=== PATIENT | male | born 1930 | race Caucasian/White ===

== ENCOUNTER → 2016-06-20 | Outpatient (REF) | payer MEDICARE, OTHER ==
[~2016-06-20] MED LIST: AMLO10TA PO; ASPI81TA85 PO; CALC1CAP31 PO; CARV3.12 PO; CORE3.12 PO; FAMO1TAB25 PO; FERR325T PO; FURO20TA2 PO; HYDR12.55 PO; HYDR25TAB PO; IMBR1CAP PO; IRON10VL IV; LASI20TA PO; NORCOTAB PO; PROC1INJ2 IV; QUIN40TA5 PO; SENE8.6T PO; SENN1TAB2 PO; TUMS500C PO; TYLE325T5 PO; TYLE650T30 PO; VITA-130 PO; VITA10002 PO
== END ==
LOC: M LAB REF 12:27
PROVIDERS: ATTEND Internal Medicine Medical Oncology
DX: C88.0 Waldenstrom macroglobulinemia (principal); C85.90 Non-Hodgkin lymphoma, unspecified, unspecified site; R16.1 Splenomegaly, not elsewhere classified; Z51.81 Encounter for therapeutic drug level monitoring; Z79.899 Other long term (current) drug therapy

== ENCOUNTER 2016-07-23 10:38 | Inpatient (IN) | payer MEDICARE, OTHER ==
[~2016-07-23] VITALS: Ht 177.8 cm; Wt 81.2 kg
[2016-07-23] MEDS ORDERED: ACETAMINOPHEN TAB 650MG DOSE (2X325MG) PO PRN (11:30)
[2016-07-23 15:47] VITALS: BP 150/75
[2016-07-23] MEDS ORDERED: CEFT1INJ3 IV (16:45)
[2016-07-23] MEDS ORDERED: LEVO1INJ IV (16:45)
[2016-07-23] MEDS ORDERED: ACET-654 PO (16:45)
[2016-07-23] MEDS ORDERED: FERR324T2 PO (16:45)
[2016-07-23] MEDS ORDERED: NEUP480I2 SC (16:45)
[2016-07-23] MEDS ORDERED: METO-346 PO (16:45)
[2016-07-23 16:46] LABS: ALBUMIN 2.9 GM/DL (3.2-5.2); BILIRUBIN,TOTAL 0.5 MG/DL (0.2-1.0); CALCIUM LEVEL 8.1 MG/DL (8.8-10.2); CREATININE FOR GFR 2.38 MG/DL (0.70-1.30); GLOMERULAR FILTRATION RATE 27.9 (>35); POTASSIUM SERUM 4.4 MEQ/L (3.5-5.1); TOTAL PROTEIN 5.8 GM/DL (6.4-8.2)
[2016-07-23] MEDS ORDERED: FAMO40TA3 PO (16:47)
[2016-07-23] MEDS ORDERED: ONDANSETRON 4MG/2ML VIAL (J2405) IV PRN (17:30)
[2016-07-23] MEDS: CEFEPIME HCL 2 GM in D5W MINI-BAG PLUS 50 ML IV SCH (20:34)
[2016-07-23] MEDS: CARVedilol 3.125 MG TAB PO SCH (20:34)
--- NOTE | 2016-07-23 20:37 | HPE ---
DATE OF ADMISSION: 07/23/2016 PRIMARY CARE PROVIDERS: This is a patient of Dr. Schaefer, Dr. Kay Pedersen, Dr. Velasquez, and Dr. Viera. CHIEF COMPLAINT: Neutropenia. SUMMARY OF PRESENTATION: This is an 85-year-old who was admitted to [facility] on 07/16, and transferred to [facility] for oncologic consultation. The patient presented on 07/16 to [facility] with chills and shortness of breath which were sudden in onset. He was found to have bilateral pneumonia, left greater than right, with a lingular focus. He was also noted to be in new-onset atrial fibrillation with slight leukopenia, platelets of 81, temperature of 102.2, and a creatinine above his baseline at 2.6. His white cell count at that time was 3 with neutrophils 74%. There was suspicion of bleeding from a hemorrhoid and anticoagulation was deferred. On 07/17, he had cough with hemoptysis at least once. He had continued dyspnea on exertion. Dyspnea on exertion was severe. He was on supplemental oxygen. Temperature was 100.2 with a white cell count of 3.4 , neutrophils 72%. On 07/18, his atrial fibrillation was rate controlled. Anticoagulation was still deferred secondary to hemoptysis and low platelets. He was afebrile with a white cell count of 1.8, neutrophils 62%. An echocardiogram was completed which showed mod-severe mitral insufficiency and tricuspid insufficiency. CT showed multifocal airspace disease with a focus in the left upper lobe, small bilateral pleural effusions and very small nodules in the right lung. On 07/19, he was seen by cardiology, by Dr. Tre Gonzales, who agreed with not starting anticoagulation, although in the future he would benefit from anticoagulation as he is a high CHADS-VASC score. The patient was on Neupogen. At this point, he was on Rocephin and Levaquin for his pneumonia, and vancomycin was given in one dose. On 07/20, his hemoglobin was 7.7. He received two units of packed red blood cells. His creatinine is 2.4. White cell count 15, with neutrophils 40%, and he was afebrile. On 07/21, he had cough without hemoptysis. White cell count 1.4, neutrophils 45%, and creatinine 2.2. On 07/22, white cell count 1.2, with creatinine of 2.1, and he was afebrile. On 07/23, his temperature is 97.7, pulse 80, respiratory rate 16, blood pressure 152/76, 94% on what appear to be room air. His weight was 176 which was the same as upon arrival. His white cell count was 1 with neutrophils at 14% and creatinine of 2.1. During the course of his stay, the team at [facility] had discussed the possibility of transfer to [facility] and I had been following by phone with the local oncologist. Today, it was elected to transfer the patient to [facility] as we had the bed availability as well as specialist availability necessary to handle his care. Currently he says he is feeling quite well. He is no longer having any significant hemoptysis. He has no pain. He has no further dyspnea on exertion. He was able to walk at [facility] several rooms and back without difficulty. He has no abdominal pain, no rashes. We have discussed the possibility of blood transfusion, and he has given informed consent to give further blood transfusion should that become necessary. His last fever was noted on 07/20 at midnight, 100.8. He has been receiving Neupogen 480 mg daily for four days. Cultures done during the stay including respiratory panel done on 07/16, were negative. PAST MEDICAL HISTORY: 1. Notable for Waldenstrom's. 2. Coronary artery disease status post stents, last in 1986. 3. Gastroesophageal reflux disease (GERD). 4. Hypertension. 5. Chronic kidney disease which would appear to be stage IV with a baseline creatinine probably between 2 and 2.25. 6. Anemia of chronic disease and now pancytopenia likely related to his cancer treatment. 7. History of pleural effusion, status post pleural decortication. 8. Moderate to severe mitral insufficiency. PAST SURGICAL HISTORY: Notable for appendectomy, pleural decortication, and pericardial window. FAMILY HISTORY: Notable for mother who of cancer. Father of unknown causes. ALLERGIES: He has an allergy listed to SYNTHROID which causes rash and itching. MEDICATIONS: During his hospitalization at [facility] include: - Tylenol - ceftriaxone 1 gram intravenous (IV) daily - Neupogen 400 mcg subcutaneous daily - hydrochlorothiazide 12.5 mg daily - Levaquin 250 mg IV daily - amlodipine 10 mg daily - aspirin 81 mg daily - calcitriol 0.25 mcg daily - Coreg 3.125 mg by mouth twice a day - famotidine 40 mg by mouth daily - ferrous sulfate 324 mg by mouth daily SOCIAL HISTORY: He is DO NOT RESUSCITATE/DO NOT INTUBATE (DNR/DNI) and Medical Orders for Life-Sustaining Treatment (MOLST) form is at the bedside, and we reviewed this together. He does not drink alcohol and lives alone. REVIEW OF SYSTEMS: Notable for no headache, no visual changes, no runny nose, no sore throat. No neck pain. Currently not coughing. No chest pain. Not particularly short of breath. No rashes. No abdominal pain. He has been having bowel movements. He has not had any blood that he notices with bowel movements, although he does have a history of hemorrhoids that sometimes bleed. No focal weakness. No history of seizure. He does have lower extremity edema which occurred in both feet during the course of this hospitalization. PHYSICAL EXAMINATION: GENERAL: He is awake, alert, pleasant, easily conversant, in no acute distress. HEENT: Head is normocephalic. Sinus nontender. Pupils equal, round, and reactive. Anicteric. Noninjected. Nasal septum is midline. Mucous membranes moist. There is no thrush. He has his own dentition. NECK: Supple. No cervical or supraclavicular adenopathy. LUNGS: Breathing is symmetrical, distant sounding. I to E ratio is 1:3. No accessory muscle use. Speaking in complete sentences. HEART: Distant sounding, normal S1, S2. I do not appreciate a murmur. Radial pulses are 2+. Capillary refill is less than two seconds. ABDOMEN: Somewhat distended, soft, doughy, nontender. EXTREMITIES: There is no calf edema, but there is bilateral pedal edema, which is pitting and quite noticeable. There is no erythema. Nontender. Sensation appears to be grossly intact. VITAL SIGNS: Are noted to be temperature 96.9, pulse 88, respiratory rate 18, blood pressure 150/75, 97% on room air. NEUROLOGIC: Cranial nerves II through XII are grossly intact. He has normal mood and affect. Strength is symmetrical in the upper and lower extremities. LABORATORY DATA: Reviewed as above. There are no new labs from [facility] as of yet. EKG from previous hospital showed atrial fibrillation with ST-T wave changes. Repeat chest x-ray is pending. 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 PLAN: 1. The patient has neutropenia and has been febrile. Is not currently febrile. Completing a course of therapy for his pneumonia. I have elected to switch his antibiotics from ceftriaxone and Levaquin to cefepime, which will be dose for his renal function. The patient has not been febrile for several days. We will obtain sputum should that become available, and continue to monitor him clinically. 2. The patient is neutropenic which has worsened. Continuing with [facility] and consulting Dr. Boyle for further assistance in his care. 3. The patient also has pancytopenia in the setting of neutropenia, most likely related to his chemotherapy. I sent iron studies. We will also transfuse packed red blood cells as necessary. Have obtained informed consent for that should it become necessary. 4. The patient has chronic kidney disease, stage IV. Appears to be close to his baseline as of this morning. We will continue to follow labs. 5. The patient has new-onset atrial fibrillation. Would benefit from anticoagulation as he improves from his illness. 6. The patient has bilateral lower extremity edema. Would also benefit from lower extremity Dopplers given his increased risk of deep venous thrombosis (DVT). 7. Hemoptysis. Seems to have resolved at this point. Is likely multifactorial. He has not received a CT angiogram of the chest to rule out pulmonary embolism (PE) , and there is none available to him currently. I do not believe that that is the most likely cause of his hemoptysis. 8. DVT prophylaxis will be mechanical. 9. The patient has a history of hypertension. We will continue with antihypertensives as ordered at [facility] with hold parameters. 10. The patient is a DNR/DNI. [facility]
--- NOTE | 2016-07-23 21:42 | ECGEPIP ---
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
[2016-07-23 22:00] VITALS: BP 166/73
[2016-07-24 06:00] VITALS: BP 130/72
[2016-07-24 06:03] LABS: BASO % 1.8 % (0.0-1.0); EOS % 1.8 % (0.0-3.0); LARGE UNSTAINED CELL % 3.7 % (0.0-4.0); LYMPH # 0.4 K/mm3 (1.5-4.5); LYMPH % 55.5 % (24.0-44.0); MEAN CORPUSCULAR HEMOGLOBIN 29.3 pg (27.0-33.0); MEAN CORPUSCULAR HGB CONC 33.1 g/dl (32.0-36.5); MEAN CORPUSCULAR VOLUME 88.3 fl (80.0-96.0); MONO % 2.3 % (0.0-5.0); NEUTROPHILS # 0.3 K/mm3 (1.8-7.7); NEUTROPHILS % 34.9 % (36.0-66.0); PLATELET COUNT, AUTOMATED 120 k/mm3 (150-450); RED CELL DISTRIBUTION WIDTH 13.5 % (11.5-14.5)
[2016-07-24 06:15] LABS: WHITE BLOOD COUNT 0.7 K/mm3 (4.0-10.0)
[2016-07-24 06:34] LABS: CALCIUM LEVEL 7.9 MG/DL (8.8-10.2); CREATININE FOR GFR 2.25 MG/DL (0.70-1.30); GLOMERULAR FILTRATION RATE 29.7 (>35); MAGNESIUM LEVEL 2.2 MG/DL (1.8-2.4); PERCENT SATURATION 10.6 % (19.7-37.4); POTASSIUM SERUM 4.3 MEQ/L (3.5-5.1); THYROXINE (T4) 7.8 UG/DL (4.5-12.0)
--- NOTE | 2016-07-24 08:03 | REP ---
CHEST, TWO VIEWS: Two views of the chest are performed and compared to prior study of 01/15/2016. Left lower hemithorax pleural based opacity appears essentially unchanged. Interstitial fibrotic scarring in the lung bases appears stable as well. No definite acute infiltrate is seen. Heart is slightly enlarged. There is tortuosity of the thoracic aorta. The mediastinal silhouette is unchanged. There are mild degenerative changes of the spine. IMPRESSION: Stable interstitial fibrotic changes without definite superimposed acute infiltrate. Stable pleural based opacity left lower hemithorax laterally. Signed by Sudheer Parkinson MD 07/24/2016 01:55 P
[2016-07-24] MEDS: FERROUS SULFATE 325MG TAB PO SCH (09:08)
[2016-07-24] MEDS: CALCITRIOL 0.25 MCG CAP (S0169) PO SCH (09:08)
[2016-07-24] MEDS: CARVedilol 3.125 MG TAB PO SCH ×2 (09:09→20:03)
[2016-07-24] MEDS: ASPIRIN 81 MG ENTERIC TAB PO SCH (09:09)
[2016-07-24] MEDS: FAMOTIDINE 20 MG TAB PO SCH (09:09)
[2016-07-24] MEDS: amLODIPine 10 MG TAB PO SCH (09:09)
[2016-07-24] MEDS: FILGRASTIM 480 MCG/0.8 ML SYRINGE (J1442) SC SCH (10:36)
--- NOTE | 2016-07-24 13:18 | IPN ---
DATE: 07/24/2016 An 85-year-old gentleman seen at bedside, actually sitting in the chair at bedside, resting comfortably. No complaints. No chest pain, shortness breath, productive sputum, cough, or hemoptysis. No nausea, vomiting, abdominal pain, or diarrhea. OBJECTIVE: VITAL SIGNS: Temperature is 97, pulse 79, respiratory rate 18, blood pressure 130/72, SPO2 is 93% on room air. GENERAL: The patient appears to be in no acute distress. He is alert. HEENT: Unremarkable. LUNGS: Clear. HEART: Regular rate and rhythm. ABDOMEN: Soft. EXTREMITIES: No edema. No calf tenderness. LABORATORY DATA: White count is 0.7, hemoglobin 9.8, platelets are 120,000. Calculated ANC is 244. Sodium 144, potassium 4.3, chloride 114, bicarbonate 19, anion gap 11, BUN is 56, creatinine is 2.25 down from 2.38, glucose is 82, magnesium 2.2, iron 19, TIBC 180, transferrin is 10.6, ferritin is 403 indicating anemia of chronic disease, AST is 13, ALT 21, alkaline phosphatase 74, CRP is 6.18, TSH is 4.180 with free T4 index 2.4, T4 of 7.8. Stool for occult blood is negative. Chest x-ray yesterday on admission shows stable interstitial fibrotic changes without definite superimposed acute infiltrate, stable pleural base opacity, left lower hemathorax. ASSESSMENT AND PLAN: 1. Severe neutropenia with febrile illness. He recently completed a course for pneumonia. On admission yesterday, he was changed to cefepime. Sputum culture is pending. Continue to monitor clinically. 2. Severe neutropenia, as indicated above with little to no response from Neupogen. His calculated absolute neutrophil count (ANC) today is 244. Dr. Boyle has seen the patient this morning and suggested that the patient likely will need a bone marrow biopsy. This likely will be deferred until tomorrow, the beginning of the week when her partner takes over. 3. Pancytopenia, in the setting of neutropenia, likely related to chemotherapy. Iron studies do suggest anemia of chronic disease. He is not symptomatic with his anemia at this point. Therefore, we will hold on any further transfusions. 4. Chronic kidney disease (CKD) stage IV. He appears to be close to his baseline. We will continue to monitor. 5. New-onset atrial fibrillation. He would benefit from anticoagulation therapy after his illnesses improve. For the time being, we will hold on any anticoagulation therapy and further adjust for rate control. 6. Bilateral lower extremity edema. He has underlying Waldenstrom's macroglobulinemia. He likely has increased vascular viscosity which could put him at a higher risk for blood clots. At any rate, we will go ahead and check an ultrasound of the lower extremities to rule out deep vein thrombosis (DVT). However, caution should be made at this point to not anticoagulate him since he is having severe pancytopenia. 7. Hemoptysis, likely multifactorial. He did not receive a CT angiogram of the chest to rule-out pulmonary embolism (PE) likely due to his chronic kidney disease. The hemoptysis has resolved at this point. We will hold off on any further chest workup and check an ultrasound of the lower extremities to see if there is any suggestion of DVT for the time being. 8. Hypertension. Continue antihypertensives with hold parameters. 9. History of coronary artery disease status post stent placement in 1986. No current symptomatology. 10. History of moderate to severe mitral insufficiency. This appears to be stable. 11. History of Waldenstrom's macroglobulinemia, as outlined above, which he follows with hematology/oncology for. 12. DVT prophylaxis with mechanical thromboembolic-deterrent stockings (TEDS) and sequentials and encouraged to ambulate as tolerated. DISPOSITION: The patient does have multiple comorbidities and a complex medical history as outlined above. His prognosis is currently guarded since he does have a severe absolute neutrophil count and appreciate input from hematology/oncology. We will currently continue with broad-spectrum antibiotic coverage as well as his other home medications. Additionally, he continues on Neupogen 480 mcg subcutaneous daily. However, he has been unresponsive at this point and, as recommended by Dr. Boyle, will likely need to have a bone marrow biopsy.
--- NOTE | 2016-07-24 13:56 | REP ---
Bilateral lower extremity Duplex Doppler venous ultrasound: Real time compression and duplex Doppler interrogation of the bilateral lower extremity deep venous system is performed. Bilaterally, the common femoral, superficial femoral and popliteal veins are fully compressible with transducer pressure and demonstrate normal spontaneous and phasic flow, without evidence of deep venous thrombosis. Impression: No evidence of deep venous thrombosis of the bilateral lower extremity femoral popliteal venous system. Note is made of a right popliteal cyst measuring 3.6 x 1.3 x 2.3 cm. Signed by Sudheer Parkinson MD 07/24/2016 01:46 P
[2016-07-24 14:00] VITALS: BP 160/62
[2016-07-24] MEDS: CEFEPIME HCL 2 GM in D5W MINI-BAG PLUS 50 ML IV SCH (20:02)
[2016-07-24 22:00] VITALS: BP 161/75
[2016-07-25] MEDS: guaiFENesin ER 600 MG TAB PO PRN (01:22)
[2016-07-25 06:00] VITALS: BP 147/67
[2016-07-25 06:35] LABS: BASO % 0.6 % (0.0-1.0); EOS % 0.6 % (0.0-3.0); LARGE UNSTAINED CELL % 6.5 % (0.0-4.0); LYMPH # 0.4 K/mm3 (1.5-4.5); LYMPH % 52.3 % (24.0-44.0); MEAN CORPUSCULAR HEMOGLOBIN 29.2 pg (27.0-33.0); MEAN CORPUSCULAR HGB CONC 32.8 g/dl (32.0-36.5); NEUTROPHILS # 0.2 K/mm3 (1.8-7.7); PLATELET COUNT, AUTOMATED 115 k/mm3 (150-450); RED CELL DISTRIBUTION WIDTH 13.6 % (11.5-14.5)
[2016-07-25 06:39] LABS: WHITE BLOOD COUNT 0.7 K/mm3 (4.0-10.0)
[2016-07-25 06:46] LABS: CALCIUM LEVEL 8.5 MG/DL (8.8-10.2); CREATININE FOR GFR 2.38 MG/DL (0.70-1.30); GLOMERULAR FILTRATION RATE 27.9 (>35); POTASSIUM SERUM 4.3 MEQ/L (3.5-5.1)
[2016-07-25] MEDS: CALCITRIOL 0.25 MCG CAP (S0169) PO SCH (09:55)
[2016-07-25] MEDS: ASPIRIN 81 MG ENTERIC TAB PO SCH (09:55)
[2016-07-25] MEDS: FERROUS SULFATE 325MG TAB PO SCH (09:55)
[2016-07-25] MEDS: FAMOTIDINE 20 MG TAB PO SCH (09:56)
[2016-07-25] MEDS: CARVedilol 3.125 MG TAB PO SCH ×2 (09:56→20:25)
[2016-07-25] MEDS: amLODIPine 10 MG TAB PO SCH (09:56)
[2016-07-25] MEDS: FILGRASTIM 480 MCG/0.8 ML SYRINGE (J1442) SC SCH (12:10)
--- NOTE | 2016-07-25 13:19 | CR ---
DATE OF CONSULTATION: 07/24/2016 REASON FOR REFERRAL: Neutropenia. HISTORY OF PRESENT ILLNESS: Mr. 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 He received one dose of rituximab, but he reacted to this. He was started on ibrutinib in November 2015. He is currently admitted for neutropenia. He was transferred from [facility] where he was admitted on 07/16/2016 for chills, shortness of breath, hemoptysis. His respiratory symptoms have since improved, but his cytopenia has continued and he was therefore transferred for further management. At present, Mr. Zabala has had no fevers since he was transferred here. He is doing reasonably well. There is no shortness of breath. He has had no fevers. He has had no hemoptysis. He is ambulatory and not in distress. He has been off ibrutinib since last week. His blood counts were improving at that time, but have subsequently decreased with a decrease in the WBC count. Platelet count has improved; however, the hemoglobin had decreased and he received 2 units of packed cells before being transferred here from [facility]. MEDICATIONS: - Filgrastim - amlodipine - calcitriol - famotidine - ferrous sulfate - carvedilol - cefepime - ondansetron ALLERGIES: LEVOTHYROXINE and RITUXIMAB. PHYSICAL EXAMINATION: He was afebrile. He was comfortable at rest and on speaking. LUNGS: Fair air entry. Oxygen saturation 93% on room air. CARDIOVASCULAR: Regular. ABDOMEN: Soft, nontender. No guarding. Positive bowel sounds. EXTREMITIES: Trace bipedal edema. No calf tenderness. IMPRESSION/PLAN: Mr. Zabala's blood tests today came back showing continued neutropenia with WBC count 0.7 and absolute neutrophil count of 0.3. The absolute neutrophil count shows an improvement from yesterday. I suggest continued monitoring of his complete blood counts with blood transfusions of packed cells and platelets as needed. Continue Neupogen. If his WBC count continues to go down or stays down for a prolonged period, a bone marrow aspiration or biopsy may be considered. I am leaving this for Dr. Pedersen to address tomorrow and/or next week. Thank you for this referral. [facility]
[2016-07-25 14:00] VITALS: BP 154/70
--- NOTE | 2016-07-25 17:22 | IPNPDOC ---
Date Seen The patient was seen on 07/25/16. Progress Note Hospitalist Progress Note Subjective: Patient states that he feels very well and would like to go home Objective: Physical Exam: Vitals: Vital Sign - Last 24 Hours 07/24/16 07/24/16 07/24/16 07/25/16 20:02 20:03 22:00 06:00 Temp 98.5 97.5 Pulse 87 87 81 Resp 18 18 B/P 161/75 161/75 147/67 Pulse Ox 96 95 O2 Delivery Room Air Room Air Room Air 07/25/16 07/25/16 07/25/16 08:15 09:56 14:00 Temp 97.1 Pulse 86 78 Resp 18 B/P 161/75 154/70 Pulse Ox 96 O2 Delivery Room Air Room Air General: Alert, awake, no acute distress HEENT: Normocephalic, atraumatic, extraocular movements intact CV: Regular rate and rhythm Lungs: Clear to auscultation bilaterally Abd: Soft, nontender, nondistended Extremities: 2+ bilateral lower extremity edema Neuro: Alert and oriented 3 Psych: Normal mood and affect Labs and Imaging: Laboratory Tests 07/25/16 05:54 Calcium Level 8.5 L, Red Blood Count 3.27 L, Mean Corpuscular Volume 89.0, Mean Corpuscular Hemoglobin 29.2, Mean Corpuscular Hemoglobin Concent 32.8, Red Cell Distribution Width 13.6, Neutrophils (%) (Auto) 35.0 L, Lymphocytes (%) (Auto) 52.3 H, Monocytes (%) (Auto) 5.0, Eosinophils (%) (Auto) 0.6, Basophils (%) ( Auto) 0.6, Neutrophils # (Auto) 0.2 L, Lymphocytes # (Auto) 0.4 L, Monocytes # ( Auto) 0.0, Eosinophils # (Auto) 0.0, Basophils # (Auto) 0.0 Assessment and Plan: 85-year-old male with Waldenstrm's gammaglobulinemia, coronary artery disease status post stenting, GERD, hypertension, CK D stage IV, pancytopenia, moderate to severe mitral insufficiency who was transferred from [facility] for an oncology consultation. At [facility], he had been being treated for a neutropenic fever with presumed pneumonia. 1. Neutropenic fever from presumed pneumonia: The patient is currently afebrile. His WBC remains at 0.7. Greatly appreciate oncology's recommendations. At this time, they're recommending continued Neupogen. We also will continue the patient on cefepime. We will transfuse platelets and PRBCs as needed. 2. Chronic kidney disease stage IV: Baseline creatinine appears to be in the mid twos, and he is currently at baseline. Continue home Rocaltrol 3. CAD status post stenting: No current chest pain. Continue home aspirin and Coreg. 4. GERD: Continue home H2 kyra. 5. Hypertension: Continue home Norvasc and beta kyra. DVT prophylaxis: SCDs Dispo: pending oncology recommendations VS, I&O, 24H, Fishbone Vital Signs/I&O Vital Signs Date Time Temp Pulse Resp B/P Pulse Ox O2 Delivery O2 Flow Rate FiO2 07/25/16 14:00 97.1 78 18 154/70 96 Room Air I&O- Last 24 Hours up to 6 AM 07/25/16 06:00 Intake Total 1320 ml Output Total 1175 ml Balance 145 ml Laboratory Data 24H LABS Laboratory Tests 2 07/25/16 05:54: Anion Gap 11, White Blood Count 0.7*L, Red Blood Count 3.27L, Hemoglobin 9.6L, Hematocrit 29.1L, Mean Corpuscular Volume 89.0, Mean Corpuscular Hemoglobin 29.2 , Mean Corpuscular Hemoglobin Concent 32.8, Red Cell Distribution Width 13.6, Platelet Count 115L, Neutrophils (%) (Auto) 35.0L, Lymphocytes (%) (Auto) 52.3H , Monocytes (%) (Auto) 5.0, Eosinophils (%) (Auto) 0.6, Basophils (%) (Auto) 0.6 , Neutrophils # (Auto) 0.2L, Lymphocytes # (Auto) 0.4L, Monocytes # (Auto) 0.0, Eosinophils # (Auto) 0.0, Basophils # (Auto) 0.0, Blood Urea Nitrogen 55H, Creatinine 2.38H, Sodium Level 144, Potassium Level 4.3, Chloride Level 114H, Carbon Dioxide Level 19L, Calcium Level 8.5L, Glomerular Filtration Rate 27.9L, Large Unclassified Cells # 0.0, Large Unclassified Cells % 6.5H CBC/BMP Laboratory Tests 07/25/16 05:54 Calcium Level 8.5 L, Red Blood Count 3.27 L, Mean Corpuscular Volume 89.0, Mean Corpuscular Hemoglobin 29.2, Mean Corpuscular Hemoglobin Concent 32.8, Red Cell Distribution Width 13.6, Neutrophils (%) (Auto) 35.0 L, Lymphocytes (%) (Auto) 52.3 H, Monocytes (%) (Auto) 5.0, Eosinophils (%) (Auto) 0.6, Basophils (%) ( Auto) 0.6, Neutrophils # (Auto) 0.2 L, Lymphocytes # (Auto) 0.4 L, Monocytes # ( Auto) 0.0, Eosinophils # (Auto) 0.0, Basophils # (Auto) 0.0 Microbiology Microbiology 07/24/16 Stool Occult Blood (MARY) - Final, Complete SANDRA LEYVA Jul 25, 2016 17:22
[2016-07-25] MEDS: CEFEPIME HCL 2 GM in D5W MINI-BAG PLUS 50 ML IV SCH (20:25)
[2016-07-25 22:00] VITALS: BP 150/62
[2016-07-26] MEDS: guaiFENesin ER 600 MG TAB PO PRN (03:49)
[2016-07-26 06:00] VITALS: BP 128/60
[2016-07-26 06:55] LABS: CALCIUM LEVEL 8.6 MG/DL (8.8-10.2); CREATININE FOR GFR 2.21 MG/DL (0.70-1.30); DIFF SLIDE NUMBER 42; GLOMERULAR FILTRATION RATE 30.3 (>35); MEAN CORPUSCULAR HEMOGLOBIN 29.2 pg (27.0-33.0); MEAN CORPUSCULAR HGB CONC 32.4 g/dl (32.0-36.5); MEAN CORPUSCULAR VOLUME 90.2 fl (80.0-96.0); PLATELET COUNT, AUTOMATED 124 k/mm3 (150-450); POTASSIUM SERUM 4.4 MEQ/L (3.5-5.1); RED CELL DISTRIBUTION WIDTH 13.7 % (11.5-14.5)
[2016-07-26 07:05] LABS: WHITE BLOOD COUNT 0.6 K/mm3 (4.0-10.0)
[2016-07-26 07:26] LABS: BASOPHILS 1 % (0-4)
[2016-07-26] MEDS: CALCITRIOL 0.25 MCG CAP (S0169) PO SCH (09:13)
[2016-07-26] MEDS: ASPIRIN 81 MG ENTERIC TAB PO SCH (09:13)
[2016-07-26] MEDS: FAMOTIDINE 20 MG TAB PO SCH (09:13)
[2016-07-26] MEDS: FERROUS SULFATE 325MG TAB PO SCH (09:13)
[2016-07-26] MEDS: amLODIPine 10 MG TAB PO SCH (09:14)
[2016-07-26] MEDS: CARVedilol 3.125 MG TAB PO SCH ×2 (09:14→20:14)
--- NOTE | 2016-07-26 10:21 | CR ---
DATE OF CONSULTATION: 07/25/2016 Dr. Flower asked me to see Mr. Zabala and provide medical oncology recommendations. The patient is an 85-year-old man well-known to me with a diagnosis of Waldenstrom's macroglobulinemia made approximately 1 year ago. He has been on ibrutinib for over 6 months with excellent response. He initially presented last year with left malignant pleural effusion and underwent thoracentesis, ultimately had a recurrence on the right, underwent right thoracentesis with pleurodesis. He also had massive splenomegaly on initial presentation. He has responded very well to ibrutinib but last week was admitted to [facility] with neutropenic fever, found to have bilateral pneumonia, started on antibiotics. He was started on filgrastim 480 mcg subcutaneous daily with a plan to continue it until his ANC marine to 1500. The WBC continues to decline and he has developed grade 3 febrile neutropenia and was transferred to [facility]. Here, absolute leukocyte count is 700, absolute neutrophil count 300 on 07/24/2016, 200 on 07/25/2016. Hemoglobin and hematocrit remain at the patient's approximate baseline of 9 and 29, respectively. He has chronic renal insufficiency. Did require blood transfusion for hemoglobin of 7 at [facility]. He has mild thrombocytopenia now, platelet count between 115 and 120. Of note, he also has had some issues of atrial fibrillation and tachycardia requiring rate control. On echocardiogram he has moderate to severe mitral insufficiency and tricuspid insufficiency, and CT at [facility] showed multifocal air space disease in the left upper lobe, bilateral small effusions and small right lung nodules (this is consistent with prior film). Anticoagulation was held due to some hemoptysis. The patient describes this as "just a little." To date blood cultures have been negative. I found Mr. Zabala seated in the chair beside the bed. He reports feeling generally kind of tired but denies any localizing pain. He would like to get out of the hospital. Ibrutinib has been held since his admission last week at [facility]. I reinforced with him the need to continue Neupogen awaiting rise in the WBC count / neutrophil count. Overall my strong impression is he has ibrutinib toxicity which can span pancytopenia, atrial fibrillation, and even pneumonia. I do not think a bone marrow biopsy is appropriate at this point but rather a watch and wait approach. Should his counts continue to lower, particularly if the platelets and red blood cell count continued to drop precipitously, possibly a diagnostic bone marrow biopsy should be performed. However, all of the current findings are consistent with ibrutinib toxicity. IMPRESSION: Ibrutinib toxicity in an 85-year-old man with Waldenstrom's macroglobulinemia generally responding to therapy but now with pancytopenia and grade 3 febrile neutropenia requiring G-CSF support. He has not yet reached a jeremie of his ANC, currently at 300. Unclear if he has reached a jeremie for hemoglobin or platelet count. No active bleeding currently. I agree with current antibiotic regimen of cefepime. I agree with current holding of anticoagulation, however if platelets normalize this might be reconsidered. RECOMMENDATIONS: 1. Continue filgrastim 480 mcg subcutaneous daily until absolute neutrophil count 1500. 2. Neutropenic contact and respiratory precautions are not essential in a patient without a longstanding history of chronic immunosuppression. 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 3. Should platelet count drop precipitously and signs of bleeding emerge, transfuse for platelet count below 20; transfuse for platelet count below 10 with or without evidence of bleeding. 4. At this point I am not recommending diagnostic bone marrow biopsy. I believe the constellation of signs and symptoms that brought the patient to the hospital are consistent with ibrutinib toxicity including his pneumonia and his atrial fibrillation, these are recognized complications in addition to the thrombocytopenia, anemia and leukopenia. Continue to hold ibrutinib for the time being. Should he develop profound progressive pancytopenia despite supportive efforts, diagnostic bone marrow biopsy may be of assistance. 5. Please send peripheral blood flow cytometry to rule out an acute leukemic process. 6. I will see the patient tomorrow 07/26/2016. I am scheduled to be out of town 07/27/2016 through 07/31/2016. My colleagues, Drs. Castillo and Montana , will be covering on an as-needed basis in my stead. MTDD
[2016-07-26] MEDS: FILGRASTIM 480 MCG/0.8 ML SYRINGE (J1442) SC SCH (10:55)
--- NOTE | 2016-07-26 11:13 | IPNPDOC ---
Date Seen The patient was seen on 07/26/16. Progress Note Subjective: Patient did not offer any complaint this morning. No fever or chills , no cough or phlegm , no nausea or vomiting or diarrhea. Vital signs: Vital Signs Label Value Date Time Patient Temperature 97.8 degrees F 07/26/16 0600 Pulse 84 07/26/16599 Respiratory Rate 20 bpm 07/26/16 06 Blood Pressure Assessment 128/60 (82) 07/26/16 06 Bedside Pulse Oximetry 95 % 07/26/16599 Blood Pressure Assessment 157/70 07/26/16 0914 Pulse 86 07/26/1614 Item Value Date Time Oxygen Delivery Method Room Air 07/26/1615 General: Alert, awake, no acute distress HEENT: Normocephalic, atraumatic, extraocular movements intact CV: Regular rate and rhythm Lungs: Clear to auscultation bilaterally Abd: Soft, nontender, nondistended Extremities: 2+ bilateral lower extremity edema Neuro: Alert and oriented 3 Psych: Normal mood and affect Assessment and Plan: 85-year-old male with Waldenstrm's gammaglobulinemia, coronary artery disease status post stenting, GERD, hypertension, CK D stage IV, pancytopenia, moderate to severe mitral insufficiency who was transferred from [facility] for an oncology consultation. At [facility], he had been being treated for a neutropenic fever with presumed pneumonia. 1. Neutropenic fever from presumed pneumonia: The patient is currently afebrile. His WBC remains at 0.6. Greatly appreciate oncology's recommendations. At this time, they're recommending continued Neupogen. We also will continue the patient on cefepime. We will transfuse platelets and PRBCs as needed. 2. Chronic kidney disease stage IV: Baseline creatinine appears to be in the mid twos, and he is currently at baseline. Continue home Rocaltrol 3. CAD status post stenting: No current chest pain. Continue home aspirin and Coreg. 4. GERD: Continue home H2 kyra. 5. Hypertension: Continue home Norvasc and beta kyra. DVT prophylaxis: SCDs Dispo: pending oncology recommendations VS, I&O, 24H, Fishbone Vital Signs/I&O Vital Signs Date Time Temp Pulse Resp B/P Pulse Ox O2 Delivery O2 Flow Rate FiO2 07/26/16 09:15 Room Air 07/26/16 09:14 86 157/70 07/26/16 06:00 97.8 20 95 I&O- Last 24 Hours up to 6 AM 07/26/16 06:00 Intake Total 1860 ml Output Total 450 ml Balance 1410 ml Laboratory Data 24H LABS Laboratory Tests 2 07/26/16 05:56: Anion Gap 12, Atypical Lymphocytes 2, Basophils (Manual) 1, Blood Urea Nitrogen 58H, Creatinine 2.21H, Sodium Level 145, Potassium Level 4.4, Chloride Level 115H, Carbon Dioxide Level 18L, Calcium Level 8.6L, Glomerular Filtration Rate 30.3L, Lymphocytes (Manual) 74H, Monocytes (Manual) 3, Neutrophils 20L, Platelet Estimate DECREASED, Red Blood Cell Morphology NORMAL CBC/BMP Laboratory Tests 07/26/16 05:56 Calcium Level 8.6 L, Red Blood Count 3.22 L, Mean Corpuscular Volume 90.2, Mean Corpuscular Hemoglobin 29.2, Mean Corpuscular Hemoglobin Concent 32.4, Red Cell Distribution Width 13.7 Microbiology Microbiology 07/24/16 Stool Occult Blood (MARY) - Final, Complete JESSIE SERRA MD Jul 26, 2016 11:13
[2016-07-26 14:00] VITALS: BP 129/60
[2016-07-26] MEDS: CEFEPIME HCL 2 GM in D5W MINI-BAG PLUS 50 ML IV SCH (20:15)
[2016-07-26 22:00] VITALS: BP 130/68
[2016-07-27 06:00] VITALS: BP 146/70
[2016-07-27 07:11] LABS: MEAN CORPUSCULAR HEMOGLOBIN 29.3 pg (27.0-33.0); MEAN CORPUSCULAR VOLUME 88.6 fl (80.0-96.0); PLATELET COUNT, AUTOMATED 116 k/mm3 (150-450); RED CELL DISTRIBUTION WIDTH 13.6 % (11.5-14.5); WHITE BLOOD COUNT 1.1 K/mm3 (4.0-10.0)
[2016-07-27 07:26] LABS: CALCIUM LEVEL 8.7 MG/DL (8.8-10.2); CREATININE FOR GFR 2.27 MG/DL (0.70-1.30); GLOMERULAR FILTRATION RATE 29.4 (>35); POTASSIUM SERUM 4.4 MEQ/L (3.5-5.1)
[2016-07-27 07:59] LABS: DOHLE BODIES 1+
[2016-07-27] MEDS: CALCITRIOL 0.25 MCG CAP (S0169) PO SCH (09:00)
[2016-07-27] MEDS: FERROUS SULFATE 325MG TAB PO SCH (09:00)
[2016-07-27] MEDS: ASPIRIN 81 MG ENTERIC TAB PO SCH (09:00)
[2016-07-27] MEDS: FAMOTIDINE 20 MG TAB PO SCH (09:00)
[2016-07-27] MEDS: amLODIPine 10 MG TAB PO SCH (09:01)
[2016-07-27] MEDS: CARVedilol 3.125 MG TAB PO SCH ×2 (09:01→20:30)
[2016-07-27] MEDS ORDERED: FUROSEMIDE 100 MG/10 ML VIAL (J1940) IV ONE (10:45)
[2016-07-27] MEDS: FILGRASTIM 480 MCG/0.8 ML SYRINGE (J1442) SC SCH (11:52)
--- NOTE | 2016-07-27 13:45 | IPNPDOC ---
Date Seen The patient was seen on 07/27/16. Progress Note Subjective: The patient did not offer any complaints today , feeling better breathing better, no fever or chills, no chest pain or cough , no abdominal pain nausea or vomiting or diarrhea. Vital signs: Vital Signs Label Value Date Time Patient Temperature 96.8 degrees F 07/27/16 0600 Pulse 69 07/27/1600 Respiratory Rate 20 bpm 07/27/16599 Blood Pressure Assessment 146/70 (95) 07/27/16599 Bedside Pulse Oximetry 95 % 07/27/16599 Physical exam: General: Alert, awake, no acute distress HEENT: Normocephalic, atraumatic, extraocular movements intact CV: Regular rate and rhythm Lungs: Clear to auscultation bilaterally Abd: Soft, nontender, nondistended Extremities: 2+ bilateral lower extremity edema Neuro: Alert and oriented 3 Psych: Normal mood and affect Assessment and Plan: 85-year-old male with Waldenstrm's gammaglobulinemia, coronary artery disease status post stenting, GERD, hypertension, CK D stage IV, pancytopenia, moderate to severe mitral insufficiency who was transferred from [facility] for an oncology consultation. At [facility], he had been being treated for a neutropenic fever with presumed pneumonia. Neutropenic fever from presumed pneumonia: The patient is currently afebrile. His WBC remains at 0.6. Greatly appreciate oncology's recommendations. At this time, they're recommending continued Neupogen. We also will continue the patient on cefepime. will need 8 days of cefepime therapy. We will transfuse platelets and PRBCs as needed. Ibrutinib toxicity : Severe pancytopenia , atrial fibrillation and even pneumonia are all seen with Ibrutinib toxicity. It has been on hold from [facility]. Chronic kidney disease stage IV: Baseline creatinine appears to be in the mid twos, and he is currently at baseline. Continue home Rocaltrol. However seems to have mild fluid overload so will give one dose of lasix today. CAD status post stenting: No current chest pain. Continue home aspirin and Coreg. GERD: Continue home H2 kyra. Hypertension: Continue home Norvasc and beta kyra. DVT prophylaxis: SCDs Dispo: pending oncology recommendations VS, I&O, 24H, Fishbone Vital Signs/I&O Vital Signs Date Time Temp Pulse Resp B/P Pulse Ox O2 Delivery O2 Flow Rate FiO2 07/27/16 09:01 80 143/63 07/27/16 09:00 Room Air 07/27/16 06:00 96.8 20 95 I&O- Last 24 Hours up to 6 AM 07/27/16 06:00 Intake Total 2750 ml Output Total 950 ml Balance 1800 ml Laboratory Data 24H LABS Laboratory Tests 2 07/27/16 06:11: Anion Gap 12, Atypical Lymphocytes 1, White Blood Count 1.1L, Red Blood Count 3.08L, Hemoglobin 9.0L, Hematocrit 27.3L, Mean Corpuscular Volume 88.6, Mean Corpuscular Hemoglobin 29.3, Mean Corpuscular Hemoglobin Concent 33.0, Red Cell Distribution Width 13.6, Platelet Count 116L, Neutrophils (%) (Auto) , Lymphocytes (%) (Auto) , Monocytes (%) (Auto) , Eosinophils (%) (Auto) , Basophils (%) (Auto) , Neutrophils # (Auto) , Lymphocytes # (Auto) , Monocytes # (Auto) , Eosinophils # (Auto) , Basophils # (Auto) , Blood Urea Nitrogen 58H, Creatinine 2.27H, Sodium Level 143, Potassium Level 4.4, Chloride Level 113H, Carbon Dioxide Level 18L, Calcium Level 8.7L, Dohle Bodies 1+, Glomerular Filtration Rate 29.4L, Large Unclassified Cells # , Large Unclassified Cells % , Lymphocytes (Manual) 81H, Monocytes (Manual) 1, Neutrophils 17L, Platelet Estimate DECREASED, Red Blood Cell Morphology NORMAL CBC/BMP Laboratory Tests 07/27/16 06:11 Calcium Level 8.7 L, Red Blood Count 3.08 L, Mean Corpuscular Volume 88.6, Mean Corpuscular Hemoglobin 29.3, Mean Corpuscular Hemoglobin Concent 33.0, Red Cell Distribution Width 13.6, Neutrophils (%) (Auto) , Lymphocytes (%) (Auto) , Monocytes (%) (Auto) , Eosinophils (%) (Auto) , Basophils (%) (Auto) , Neutrophils # (Auto) , Lymphocytes # (Auto) , Monocytes # (Auto) , Eosinophils # (Auto) , Basophils # (Auto) Microbiology Microbiology 07/24/16 Stool Occult Blood (MARY) - Final, Complete JESSIE SERRA MD Jul 27, 2016 13:45
[2016-07-27 14:00] VITALS: BP 148/64
--- NOTE | 2016-07-27 16:42 | IPN ---
DATE OF VISIT: 07/26/2016 MEDICAL ONCOLOGY INPATIENT FOLLOWUP. Mr. Zabala is an 85-year-old man with Waldenstrom's macroglobulinemia diagnosed in spring 2015 on first line treatment with ibrutinib. He is now admitted grade 3 neutropenic fever, pneumonia, pancytopenia which has progressed despite granulocyte-colony stimulating factor (G-CSF) support. He was treated at [facility] prior to his admission at [facility] for atrial fibrillation requiring rate control and started on antibiotics for bilateral pneumonia. He has developed significant, grade 3 neutropenia while inpatient. His leukopenia is grade 3 as well. Absolute white blood cell count 600, ANC 20, now grade 4. Clinically he is stable. Vital signs are normal. He is afebrile. Blood pressure 129/60 at last check. He is seated next of the bed wearing a bathrobe a little more energetic today versus yesterday, though he says he still has a little shortness of breath when he walks. He would like to go for walk down the [place] tomorrow. Overall CBC with stable normocytic anemia, hemoglobin 9, hematocrit 29, platelets stable at 124. IMPRESSION: 1. Grade 3 neutropenic fever. 2. Grade 4 neutropenia pneumonia and atrial fibrillation complicating otherwise stable long-term treatment. 3. On ibrutinib or Waldenstrom's macroglobulinemia. I recommend continuing filgrastim (Neupogen) 480 mcg subcutaneously daily until absolute neutrophil count begins to trend up and toward 1500. The leucopenia may have jeremie, it is a little unclear. The thrombocytopenia appears to have jeremie and the anemia is stable. Yesterday I recommended peripheral blood flow cytometry. If this has not been sent it should be. It may contain blasts secondary to filgrastim but an obvious leukemic clone would be pretty quickly picked up on a peripheral blood flow cytometry. I discussed with Mr. Zabala my suspicion that this is all ibrutinib related. He should stay off the drug for the time being. We will follow him carefully supporting with G-CSF until he has recovered his counts. I agree with continuing antibiotics to treat his pneumonia. If however his respiratory symptoms progress, a chest x-ray or chest CT should be done. He originally presented with a left malignant pleural effusion which was drained. He subsequently developed a right pleural effusion which was drained and then pleurodesed but he remains unpleurodesed on the left side and a recurrent left effusion there is a possibility. In the past he has declined a PleurX catheter but a recurrent pleural effusion should prompt placement of a PleurX at this point. Otherwise his lymphoma has been in very good control on ibrutinib. IMPRESSION: Waldenstrom's macroglobulinemia with ibrutinib toxicity of pancytopenia, grade 3 febrile neutropenia and pneumonia and atrial fibrillation now under good control. RECOMMENDATIONS: 1. Continue to hold ibrutinib. 2. Continue filgrastim 480 mg subcutaneously daily. 3. Discontinue filgrastim once ANC begins to begins to trend up toward or above 1000. 4. I will be out of town July 27-. Drs. Boyle and Jonathan would be available on an as-needed basis for oncology / hematology consult.
[2016-07-27] MEDS: CEFEPIME HCL 2 GM in D5W MINI-BAG PLUS 50 ML IV SCH (20:30)
[2016-07-28 06:00] VITALS: BP 158/74
[2016-07-28 07:12] LABS: MEAN CORPUSCULAR HEMOGLOBIN 29.5 pg (27.0-33.0); MEAN CORPUSCULAR HGB CONC 32.7 g/dl (32.0-36.5); MEAN CORPUSCULAR VOLUME 90.4 fl (80.0-96.0); PLATELET COUNT, AUTOMATED 142 k/mm3 (150-450); RED CELL DISTRIBUTION WIDTH 13.8 % (11.5-14.5); WHITE BLOOD COUNT 2.2 K/mm3 (4.0-10.0)
[2016-07-28 07:24] LABS: CALCIUM LEVEL 8.5 MG/DL (8.8-10.2); CREATININE FOR GFR 2.52 MG/DL (0.70-1.30); GLOMERULAR FILTRATION RATE 26.1 (>35); POTASSIUM SERUM 4.2 MEQ/L (3.5-5.1)
--- NOTE | 2016-07-28 09:21 | IPNPDOC ---
Date Seen The patient was seen on 07/28/16. Progress Note Subjective: No complaints, no fever or chills, Vitals: Vital Signs Label Value Date Time Patient Temperature 98.1 degrees F 07/28/16599 Temperature Source Tympanic 07/28/16599 Pulse 71 07/28/16599 Respiratory Rate 18 bpm 07/28/16599 Blood Pressure Assessment 158/74 (102) 07/28/16599 Bedside Pulse Oximetry 95 % 07/28/16599 Item Value Date Time Oxygen Delivery Method Room Air 07/28/16599 Physical exam: General: Alert, awake, no acute distress HEENT: Normocephalic, atraumatic, extraocular movements intact CV: Regular rate and rhythm Lungs: Clear to auscultation bilaterally Abd: Soft, nontender, nondistended Extremities: 2+ bilateral lower extremity edema Neuro: Alert and oriented 3 Psych: Normal mood and affect Assessment and Plan: 85-year-old male with Waldenstrm's gammaglobulinemia, coronary artery disease status post stenting, GERD, hypertension, CK D stage IV, pancytopenia, moderate to severe mitral insufficiency who was transferred from [facility] for an oncology consultation. At [facility], he had been being treated for a neutropenic fever with presumed pneumonia. Neutropenic fever from presumed pneumonia: The patient is currently afebrile. His WBC improving. ANC 858. Greatly appreciate oncology's recommendations. At this time, they're recommending continued Neupogen. We also will continue the patient on cefepime. will need 8 days of cefepime therapy. We will transfuse platelets and PRBCs as needed. Ibrutinib toxicity : Severe pancytopenia , atrial fibrillation and even pneumonia are all seen with Ibrutinib toxicity. It has been on hold from [facility]. Chronic kidney disease stage IV: Baseline creatinine appears to be in the mid twos, and he is currently at baseline. Continue home Rocaltrol. However seems to have mild fluid overload so will give one dose of lasix today. CAD status post stenting: No current chest pain. Continue home aspirin and Coreg. GERD: Continue home H2 kyra. Hypertension: Continue home Norvasc and beta kyra. DVT prophylaxis: SCDs VS, I&O, 24H, Fishbone Vital Signs/I&O Vital Signs Date Time Temp Pulse Resp B/P Pulse Ox O2 Delivery O2 Flow Rate FiO2 07/28/16 06:00 98.1 71 18 158/74 95 Room Air I&O- Last 24 Hours up to 6 AM 07/28/16 06:00 Intake Total 1370 ml Output Total 1075 ml Balance 295 ml Laboratory Data 24H LABS Laboratory Tests 2 07/28/16 06:24: White Blood Count 2.2L, Red Blood Count 3.15L, Hemoglobin 9.3L, Hematocrit 28.4L , Mean Corpuscular Volume 90.4, Mean Corpuscular Hemoglobin 29.5, Mean Corpuscular Hemoglobin Concent 32.7, Red Cell Distribution Width 13.8, Platelet Count 142L, Neutrophils (%) (Auto) , Lymphocytes (%) (Auto) , Monocytes (%) ( Auto) , Eosinophils (%) (Auto) , Basophils (%) (Auto) , Neutrophils # (Auto) , Lymphocytes # (Auto) , Monocytes # (Auto) , Eosinophils # (Auto) , Basophils # ( Auto) , Large Unclassified Cells # , Large Unclassified Cells % , Lymphocytes ( Manual) 58H, Monocytes (Manual) 3, Neutrophils 39, Platelet Estimate NORMAL, Red Blood Cell Morphology NORMAL 07/28/16 06:25: Anion Gap 11, Blood Urea Nitrogen 60H, Creatinine 2.52H, Sodium Level 142, Potassium Level 4.2, Chloride Level 112H, Carbon Dioxide Level 19L, Calcium Level 8.5L, Glomerular Filtration Rate 26.1L CBC/BMP Laboratory Tests 07/28/16 06:24 Red Blood Count 3.15 L, Mean Corpuscular Volume 90.4, Mean Corpuscular Hemoglobin 29.5, Mean Corpuscular Hemoglobin Concent 32.7, Red Cell Distribution Width 13.8, Neutrophils (%) (Auto) , Lymphocytes (%) (Auto) , Monocytes (%) (Auto) , Eosinophils (%) (Auto) , Basophils (%) (Auto) , Neutrophils # (Auto) , Lymphocytes # (Auto) , Monocytes # (Auto) , Eosinophils # (Auto) , Basophils # (Auto) 07/28/16 06:25 Calcium Level 8.5 L Microbiology Microbiology 07/24/16 Stool Occult Blood (MARY) - Final, Complete JESSIE SERRA MD Jul 28, 2016 09:21
[2016-07-28] MEDS: FERROUS SULFATE 325MG TAB PO SCH (10:28)
[2016-07-28] MEDS: FAMOTIDINE 20 MG TAB PO SCH (10:28)
[2016-07-28] MEDS: amLODIPine 10 MG TAB PO SCH (10:29)
[2016-07-28] MEDS: CALCITRIOL 0.25 MCG CAP (S0169) PO SCH (10:29)
[2016-07-28] MEDS: ASPIRIN 81 MG ENTERIC TAB PO SCH (10:29)
[2016-07-28] MEDS: CARVedilol 3.125 MG TAB PO SCH ×2 (10:29→20:56)
[2016-07-28] MEDS: FILGRASTIM 480 MCG/0.8 ML SYRINGE (J1442) SC SCH (11:14)
[2016-07-28 14:00] VITALS: BP 144/67
[2016-07-28] MEDS ORDERED: FUROSEMIDE 100 MG/10 ML VIAL (J1940) IV ONE (18:00)
[2016-07-28] MEDS: CEFEPIME HCL 2 GM in D5W MINI-BAG PLUS 50 ML IV SCH (20:56)
[2016-07-28 22:00] VITALS: BP 148/67
[2016-07-29 06:00] VITALS: BP 126/60
[2016-07-29 06:32] LABS: MEAN CORPUSCULAR HEMOGLOBIN 28.7 pg (27.0-33.0); MEAN CORPUSCULAR HGB CONC 31.7 g/dl (32.0-36.5); MEAN CORPUSCULAR VOLUME 90.5 fl (80.0-96.0); PLATELET COUNT, AUTOMATED 140 k/mm3 (150-450); WHITE BLOOD COUNT 4.8 K/mm3 (4.0-10.0)
[2016-07-29 06:46] LABS: CALCIUM LEVEL 8.7 MG/DL (8.8-10.2); CREATININE FOR GFR 2.86 MG/DL (0.70-1.30); GLOMERULAR FILTRATION RATE 22.5 (>35); POTASSIUM SERUM 4.3 MEQ/L (3.5-5.1)
[2016-07-29 08:04] LABS: BANDS 1 % (< 11)
[2016-07-29 08:05] LABS: HYPOCHROMASIA 1+
[2016-07-29] MEDS ORDERED: FUROSEMIDE 80 MG TAB PO SCH (09:00)
[2016-07-29] MEDS: FAMOTIDINE 20 MG TAB PO SCH (10:03)
[2016-07-29] MEDS: FILGRASTIM 480 MCG/0.8 ML SYRINGE (J1442) SC SCH (10:03)
[2016-07-29] MEDS: CALCITRIOL 0.25 MCG CAP (S0169) PO SCH (10:03)
[2016-07-29] MEDS: ASPIRIN 81 MG ENTERIC TAB PO SCH (10:03)
[2016-07-29] MEDS: FERROUS SULFATE 325MG TAB PO SCH (10:04)
[2016-07-29] MEDS: amLODIPine 10 MG TAB PO SCH (10:04)
[2016-07-29] MEDS: CARVedilol 3.125 MG TAB PO SCH ×2 (10:04→20:47)
--- NOTE | 2016-07-29 11:39 | IPNPDOC ---
Date Seen The patient was seen on 07/29/16. Progress Note Subjective: no complaints today. Vitals: Vital Signs Label Value Date Time Patient Temperature 96.9 degrees F 07/29/16599 Temperature Source Tympanic 07/29/16599 Pulse 62 07/29/16599 Respiratory Rate 16 bpm 07/29/16599 Blood Pressure Assessment 126/60 (82) 07/29/16599 Bedside Pulse Oximetry 96 % 07/29/16599 Item Value Date Time Oxygen Delivery Method Room Air 07/29/16599 Physical exam: General: Alert, awake, no acute distress HEENT: Normocephalic, atraumatic, extraocular movements intact CV: Regular rate and rhythm Lungs: Clear to auscultation bilaterally Abd: Soft, nontender, nondistended Extremities: 2+ bilateral lower extremity edema Neuro: Alert and oriented 3 Psych: Normal mood and affect Assessment and Plan: 85-year-old male with Waldenstrm's gammaglobulinemia, coronary artery disease status post stenting, GERD, hypertension, CK D stage IV, pancytopenia, moderate to severe mitral insufficiency who was transferred from [facility] for an oncology consultation. At [facility], he had been being treated for a neutropenic fever with presumed pneumonia. Neutropenic fever from presumed pneumonia: The patient is currently afebrile. His WBC improving. ANC above 1500 will stop neupogen. . Greatly appreciate oncology's recommendations. We also will continue the patient on cefepime. will need 8 days of cefepime therapy. We will transfuse platelets and PRBCs as needed. Ibrutinib toxicity : Severe pancytopenia , atrial fibrillation and even pneumonia are all seen with Ibrutinib toxicity. It has been on hold from [facility]. Chronic kidney disease stage IV: Baseline creatinine appears to be in the mid twos, and he is currently at baseline. Continue home Rocaltrol. However seems to have mild fluid overload so will give one dose of lasix today. CAD status post stenting: No current chest pain. Continue home aspirin and Coreg. GERD: Continue home H2 kyra. Hypertension: Continue home Norvasc and beta kyra. DVT prophylaxis: SCDs VS, I&O, 24H, Fishbone Vital Signs/I&O Vital Signs Date Time Temp Pulse Resp B/P Pulse Ox O2 Delivery O2 Flow Rate FiO2 07/29/16 10:04 67 135/65 07/29/16 06:00 96.9 16 96 Room Air I&O- Last 24 Hours up to 6 AM 07/29/16 05:59 Intake Total 1430 ml Output Total 1050 ml Balance 380 ml Laboratory Data 24H LABS Laboratory Tests 2 07/29/16 05:37: Anion Gap 12, Atypical Lymphocytes 6H, Band Neutrophils 1, White Blood Count 4.8 , Red Blood Count 3.36L, Hemoglobin 9.6L, Hematocrit 30.4L, Mean Corpuscular Volume 90.5, Mean Corpuscular Hemoglobin 28.7, Mean Corpuscular Hemoglobin Concent 31.7L, Red Cell Distribution Width 14.0, Platelet Count 140L, Neutrophils (%) (Auto) , Lymphocytes (%) (Auto) , Monocytes (%) (Auto) , Eosinophils (%) (Auto) , Basophils (%) (Auto) , Neutrophils # (Auto) , Lymphocytes # (Auto) , Monocytes # (Auto) , Eosinophils # (Auto) , Basophils # ( Auto) , Blood Urea Nitrogen 61H, Creatinine 2.86H, Sodium Level 141, Potassium Level 4.3, Chloride Level 111H, Carbon Dioxide Level 18L, Calcium Level 8.7L, Glomerular Filtration Rate 22.5L, Hypochromasia 1+, Large Unclassified Cells # , Large Unclassified Cells % , Lymphocytes (Manual) 46, Metamyelocytes 1H, Monocytes (Manual) 1, Neutrophils 45, Platelet Estimate NORMAL CBC/BMP Laboratory Tests 07/29/16 05:37 Calcium Level 8.7 L, Red Blood Count 3.36 L, Mean Corpuscular Volume 90.5, Mean Corpuscular Hemoglobin 28.7, Mean Corpuscular Hemoglobin Concent 31.7 L, Red Cell Distribution Width 14.0, Neutrophils (%) (Auto) , Lymphocytes (%) (Auto) , Monocytes (%) (Auto) , Eosinophils (%) (Auto) , Basophils (%) (Auto) , Neutrophils # (Auto) , Lymphocytes # (Auto) , Monocytes # (Auto) , Eosinophils # (Auto) , Basophils # (Auto) Microbiology Microbiology 07/24/16 Stool Occult Blood (MARY) - Final, Complete JESSIE SERRA MD Jul 29, 2016 11:39
[2016-07-29 14:00] VITALS: BP 129/58
[2016-07-29] MEDS: CEFEPIME HCL 2 GM in D5W MINI-BAG PLUS 50 ML IV SCH (20:47)
[2016-07-29 22:00] VITALS: BP 148/64
[2016-07-30 06:00] VITALS: BP 130/61
[2016-07-30 06:45] LABS: BASO # 0.1 K/mm3 (0.0-0.2); BASO % 0.6 % (0.0-1.0); EOS % 0.1 % (0.0-3.0); LARGE UNSTAINED CELL # 0.5 K/mm3 (0.0-0.4); LARGE UNSTAINED CELL % 5.1 % (0.0-4.0); LYMPH # 1.8 K/mm3 (1.5-4.5); LYMPH % 20.6 % (24.0-44.0); MEAN CORPUSCULAR HEMOGLOBIN 28.3 pg (27.0-33.0); MEAN CORPUSCULAR HGB CONC 32.1 g/dl (32.0-36.5); MEAN CORPUSCULAR VOLUME 88.3 fl (80.0-96.0); MONO # 0.3 K/mm3 (0.0-0.8); MONO % 3.4 % (0.0-5.0); NEUTROPHILS # 6.2 K/mm3 (1.8-7.7); NEUTROPHILS % 70.2 % (36.0-66.0); PLATELET COUNT, AUTOMATED 165 k/mm3 (150-450); RED CELL DISTRIBUTION WIDTH 14.1 % (11.5-14.5); WHITE BLOOD COUNT 8.8 K/mm3 (4.0-10.0)
[2016-07-30 06:59] LABS: CALCIUM LEVEL 9.1 MG/DL (8.8-10.2); CREATININE FOR GFR 3.01 MG/DL (0.70-1.30); GLOMERULAR FILTRATION RATE 21.2 (>35); POTASSIUM SERUM 4.2 MEQ/L (3.5-5.1)
[2016-07-30] MEDS ORDERED: LASI40TA PO (09:09)
[2016-07-30] MEDS: CALCITRIOL 0.25 MCG CAP (S0169) PO SCH (09:49)
[2016-07-30] MEDS: ASPIRIN 81 MG ENTERIC TAB PO SCH (09:49)
[2016-07-30] MEDS: FAMOTIDINE 20 MG TAB PO SCH (09:49)
[2016-07-30 09:52] VITALS: BP 143/66
[2016-07-30] MEDS: CARVedilol 3.125 MG TAB PO SCH (09:52)
[2016-07-30] MEDS: amLODIPine 10 MG TAB PO SCH (09:52)
--- NOTE | 2016-08-01 16:49 | DSES ---
DATE OF ADMISSION: 07/23/2016 DATE OF DISCHARGE: 07/30/2016 PRIMARY CARE PROVIDER: Mukund Schaefer MD PASSENGER LOCOMOTIVE ENGINEER: Susanne Velasquez MD MONEY ORDER CLERK: Kay Pedersen MD DISCHARGE DIAGNOSES: 1. Neutropenic fever. 2. Pneumonia. 3. Ibrutinib toxicity. 4. Paroxysmal atrial fibrillation with rapid ventricular response (RVR). 5. Chronic kidney disease (CKD) stage IV with some worsening. 6. Coronary artery disease with history of stenting. 7. Gastroesophageal reflux disease (GERD). 8. Waldenstrom macroglobulinemia. 9. Severe pancytopenia. 10. Severe mitral insufficiency. 11. Tricuspid insufficiency. 12. History of pleural effusion status post pleural decortication. 13. Anemia of chronic disease. 14. Hypertension. DISCHARGE MEDICATIONS: - Tylenol 650 mg every 6 hours as needed for pain - amlodipine 10 mg daily - aspirin 81 mg daily - calcitriol 0.25 mcg by mouth daily - Coreg 3.125 mg by mouth twice a day - famotidine 40 mg by mouth daily - Lasix 40 mg by mouth daily HOSPITAL COURSE: This is an 85-year-old male with Waldenstrom's macroglobulinemia on ibrutinib therapy for the past 6 months, CKD stage IV with a baseline creatinine of around 2.2 to 2.5, initially was admitted to [facility] from 07/16/2016, for fever, chills, shortness of breath and was found to have bilateral pneumonia, he was also noted to have new onset atrial fibrillation, thrombocytopenia, and mild leukopenia. He did have some acute kidney injury (ROMINA) on CKD with a creatinine of 2.6, slightly elevated from his baseline. Patient was started on oxygen for his dyspnea on exertion and also on ceftriaxone and levofloxacin for his pneumonia. In [facility], his white count started going down and he became severely pancytopenic with a white blood cell (WBC) count as low as 1200, with hemoglobin of 7.7, 45% neutrophils. At this point he was afebrile, however because of his worsening pancytopenia he was transferred to our hospital on 07/24/2016, for hematologic consultation. Patient also received one dose of vancomycin on 07/20/2016, in the other hospital. Here, on arrival, his WBC count was 1000 which further decreased to a lowest of 0.6. Patient was continued on Neupogen which was started at [facility] and also his antibiotic was changed to cover for neutropenic fever to cefepime. Vancomycin was discontinued. Levofloxacin was discontinued in view of his thrombocytopenia and neutropenia. Patient responded to Neupogen and his white count gradually started improving and also his hemoglobin as well as his platelet count improved. Patient's renal functions did worsen during the hospitalization up to 3 and patient was noted to have bipedal swelling so the patient had some intravenous (IV) Lasix during the hospitalization, subsequently changed to oral Lasix. Patient completed an 8-day course of cefepime with resolution of his shortness of breath and dyspnea. He was functioning at his baseline with stable vital signs. His renal function still remained worse than his baseline, however patient did not have any obstructive uropathy. Patient was stable and discharged home. 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 Patient was seen by Dr. Kay Pedersen in the hospital and it was felt that his severe pancytopenia, neutropenia, pneumonia, and atrial fibrillation could all be due to ibrutinib toxicity, as pancytopenia grade 3, febrile neutropenia, pneumonia, atrial fibrillation are all known to be side effects of long-term therapy with ibrutinib. 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 The stable pleural based opacity in the left lower hemithorax continued to be seen, however after the treatment of pneumonia and diuresis, patient's shortness of breath and dyspnea improved, so further CT chest was not done. PHYSICAL EXAMINATION: VITAL SIGNS: Temperature 96.6, pulse 75, respiratory rate 18, blood pressure 143/66, pulse oximetry 95% in room air. GENERAL: Patient awake, alert, oriented times three, sitting up in chair, in no acute distress. HEENT: Normocephalic, atraumatic. Moist mucous membranes. Anicteric eyes. CHEST: Some basal crackles present, otherwise clear to auscultation. CARDIOVASCULAR: S1, S2, irregular rate, is controlled. There is a systolic murmur present. ABDOMEN: Soft, nontender, bowel sounds present. EXTREMITIES: Bipedal 2+ to 3+ edema. LABORATORY DATA: WBC 8.8, hemoglobin 9.7, platelets 165, sodium 141, potassium 4.2, chloride 109, bicarbonate 20, BUN 66, creatinine 3, glucose 77, calcium 9.1. Stool occult blood negative. Cultures from [facility] are all negative. Bilateral vascular ultrasound of the lower extremities did not show any deep venous thrombosis (DVT). There was a right popliteal cyst. Chest xray showed stable interstitial fibrotic changes. There was a stable pleural based opacity in the left lower hemithorax laterally. DISPOSITION: Patient is discharged home in a stable condition. DISCHARGE INSTRUCTIONS: Patient to followup with Dr. Kay Pedersen in 1-2 weeks. Patient to followup with primary care provider in 1-2 weeks. Patient advised to get a basic metabolic panel done within 1 week and followup with nephrology in 1-2 weeks. Regular diet. Activity as tolerated. Fluid restriction 1800 mL per day.
== END 2016-07-30 11:46 | disposition home or self-care (01) | DRG 840 ==
LOC: M MSPAV 15:46
PROVIDERS: ADMIT Hospitalist; ATTEND Internal Medicine Nephrology
DX: C88.0 Waldenstrom macroglobulinemia (principal); J18.9 Pneumonia, unspecified organism; D61.810 Antineoplastic chemotherapy induced pancytopenia; N18.4 Chronic kidney disease, stage 4 (severe); I48.0 Paroxysmal atrial fibrillation; I12.9 Hypertensive chronic kidney disease with stage 1 through stage 4 chronic kidney disease, or unspecified chronic kidney disease; D64.9 Anemia, unspecified; Z66 Do not resuscitate; I36.0 Nonrheumatic tricuspid (valve) stenosis; K21.9 Gastro-esophageal reflux disease without esophagitis; I25.10 Atherosclerotic heart disease of native coronary artery without angina pectoris; Z79.82 Long term (current) use of aspirin; Z79.899 Other long term (current) drug therapy; D70.1 Agranulocytosis secondary to cancer chemotherapy; I34.0 Nonrheumatic mitral (valve) insufficiency

== ENCOUNTER → 2016-08-04 | Outpatient (REF) | payer MEDICARE, OTHER ==
[~2016-08-04] MED LIST changes: +ACET-654 PO; +CEFT1INJ3 IV; +FAMO40TA3 PO; +FERR324T2 PO; +LASI40TA PO; +LEVO1INJ IV; +METO-346 PO; +NEUP480I2 SC
== END ==
LOC: M LAB REF 16:57
PROVIDERS: ATTEND Internal Medicine Medical Oncology
DX: C85.90 Non-Hodgkin lymphoma, unspecified, unspecified site (principal); C88.0 Waldenstrom macroglobulinemia; R16.1 Splenomegaly, not elsewhere classified; Z79.899 Other long term (current) drug therapy

== ENCOUNTER → 2016-08-31 | Outpatient (REF) | payer MEDICARE, OTHER ==
[2016-08-31 14:21] LABS: PERCENT SATURATION 14.8 % (19.7-37.4)
== END ==
LOC: M LAB REF 09:10
PROVIDERS: ATTEND Internal Medicine Nephrology
DX: D50.9 Iron deficiency anemia, unspecified (principal)

== ENCOUNTER → 2016-09-06 | Outpatient (REF) | payer MEDICARE, OTHER ==
[2016-09-09 00:06] LABS: FREE KAPPA LIGHT CHAINS SERUM 83.09 mg/L (3.30-19.40); FREE LAMBDA LIGHT CHAINS SERUM 418.72 mg/L (5.71-26.30); KAPPA/LAMBDA RATIO SERUM 0.2 (0.26-1.65)
== END ==
LOC: M LAB REF 16:28
PROVIDERS: ATTEND Internal Medicine Medical Oncology
DX: C85.80 Other specified types of non-Hodgkin lymphoma, unspecified site (principal); C88.0 Waldenstrom macroglobulinemia

== ENCOUNTER → 2016-09-20 | Outpatient (REF) | payer MEDICARE, OTHER ==
[2016-09-20 20:03] LABS: IMMUNOGLOBULIN G 680 MG/DL (681-1648); IMMUNOGLOBULIN M 967 MG/DL (40-230)
== END ==
LOC: M LAB REF 16:48
PROVIDERS: ATTEND Internal Medicine Medical Oncology
DX: R16.1 Splenomegaly, not elsewhere classified (principal)

== ENCOUNTER → 2016-10-10 | Outpatient (REF) | payer MEDICARE, OTHER ==
[2016-10-13 00:07] LABS: FREE KAPPA LIGHT CHAINS SERUM 58.64 mg/L (3.30-19.40); FREE LAMBDA LIGHT CHAINS SERUM 281.94 mg/L (5.71-26.30); KAPPA/LAMBDA RATIO SERUM 0.21 (0.26-1.65)
== END ==
LOC: M LAB REF 12:50
PROVIDERS: ATTEND Internal Medicine Medical Oncology
DX: C85.90 Non-Hodgkin lymphoma, unspecified, unspecified site (principal); C88.0 Waldenstrom macroglobulinemia; R16.1 Splenomegaly, not elsewhere classified; D64.9 Anemia, unspecified

== ENCOUNTER → 2016-10-12 | Outpatient (CLI) | payer MEDICARE, OTHER ==
--- NOTE | 2016-10-12 14:27 | REP ---
Clinical: History of Waldenstrom's disease. Comparison: 04/19/2016. Findings: Current examination demonstrates extensive bilateral irregular pleural thickening and small pleural effusions which appear to be slightly increased from prior examination (left greater than right) as well as increased areas of predominantly lower lobe fibroatelectatic changes and bronchiectasis again appearing increased from prior examination with areas of presumed chronic atelectasis in the posterior left lower lobe and along the medial aspect of the right lower lobe. There is a new area of reticular nodular infiltrate in the anterior segment right lower lobe (images 74 - 84) and there is evidence for increased mediastinal and hilar adenopathy. As example, precarinal lymph node measures 14.3 mm short axis diameter previously measuring 8.7 mm maximal diameter and aortopulmonary window lymph nodes measure 12 mm short-axis diameter previously measuring 9 mm short-axis diameter. Cardiomegaly is again noted along with atherosclerotic changes to the thoracic aorta and coronary arteries. Limited evaluation of the upper abdomen demonstrates normal bilateral adrenal glands along with my moderate bilateral perinephric stranding and multiple hyperdense renal lesions measuring up to 2.7 cm which is similar to prior examination. Impression: Current examination demonstrates a new area of reticulonodular infiltrate in the anterior segment right lower lobe as well as increased mediastinal adenopathy, and diffuse bilateral pleuroparenchymal changes (left greater than right) as described above. Signed by Bruno Sequeira MD 10/12/2016 02:18 P
== END ==
LOC: M RAD 11:57
PROVIDERS: ATTEND Internal Medicine Medical Oncology
DX: Z08 Encounter for follow-up examination after completed treatment for malignant neoplasm (principal); Z85.72 Personal history of non-Hodgkin lymphomas; R91.8 Other nonspecific abnormal finding of lung field

== ENCOUNTER → 2016-10-12 | Outpatient (CLI) | payer MEDICARE, OTHER ==
--- NOTE | 2016-10-14 22:25 | ECHO ---
DATE OF PROCEDURE: 10/12/2016 DATE OF : 1930 AGE: 85 REFERRING PROVIDER: Dr. Kay Pedersen PATIENT LOCATION: Outpatient REASON FOR THE ECHOCARDIOGRAM: Chemotherapy drug monitoring, pedal edema. 2D MEASUREMENTS: IVS: 1.2 cm LV: 4.8 cm LVPW: 1.2 cm LA: 4.9 cm Aorta: 3.3 cm IVC: 2.2 cm DOPPLER MEASUREMENTS: Peak velocity across the aortic valve: 0.79 m/s Peak velocity across the LVOT: 0.49 m/s Mitral E: 0.95. Maximum tricuspid valve velocity: 3.2 m/s 2D COMMENTS: 1. Normal left ventricular size, wall thickness and systolic function. Left ventricular global systolic function is estimated at 60-65%. 2. Mildly enlarged left atrium and right atrium. Normal right ventricle. 3. The atrial septum appeared to be normal without evidence of defect or shunt. 4. Normal aortic root. 5. Trace pericardial effusion noted in limited views. No evidence of cardiac tamponade. 6. Mildly calcified aortic valve with normal leaflet excursion. Mildly calcified mitral annulus, could not rule out mitral valve prolapse. Normal tricuspid valve and pulmonic valve. The proximal pulmonary artery branches also appear to be normal. 7. The inferior vena cava was mildly enlarged, central venous pressure might be elevated. DOPPLER: It detects mild to moderate aortic regurgitation, moderately severe mitral regurgitation, and moderately severe tricuspid regurgitation. The calculated pulmonary artery systolic pressure varies between 40-50 mmHg. IMPRESSION: 1. Normal global left ventricular systolic function. 2. Aortic valve sclerosis with mild to moderate aortic regurgitation but no aortic stenosis. 3. Moderately severe mitral regurgitation with dilated left atrium and mitral annulus calcification. 4. Moderately severe tricuspid regurgitation with mildly enlarged right atrium. Moderate pulmonary artery hypertension noted. 5. Not mentioned above, trace pulmonic regurgitation also detected.
== END ==
LOC: M CARPUL 10:26
PROVIDERS: ATTEND Internal Medicine Medical Oncology
DX: R60.0 Localized edema (principal); Z08 Encounter for follow-up examination after completed treatment for malignant neoplasm; Z85.72 Personal history of non-Hodgkin lymphomas; R91.8 Other nonspecific abnormal finding of lung field

== ENCOUNTER → 2016-10-18 | Outpatient (REF) | payer MEDICARE, OTHER | LOC: M LAB REF 12:22 | PROVIDERS: ATTEND Internal Medicine Medical Oncology | DX: C88.0 Waldenstrom macroglobulinemia (principal) ==

== ENCOUNTER → 2016-11-15 | Outpatient (REF) | payer MEDICARE, OTHER ==
[~2016-11-15] MED LIST changes: -ACET-654 PO; +ACET1TAB17 PO; +FERR1TAB8 PO; -FERR325T PO; +HYDR10TAB PO; +PROC20004 INJ; +QUIN1TAB15 PO; -QUIN40TA5 PO; -VITA-130 PO; +VITA500T PO
[2016-11-17 10:17] LABS: BETA 2 MICROGLOBULIN 8.7 mg/L (0.6-2.4); FREE KAPPA LIGHT CHAINS SERUM 59.9 mg/L (3.3-19.4); FREE LAMBDA LIGHT CHAINS SERUM 214.3 mg/L (5.7-26.3); KAPPA/LAMBDA RATIO SERUM 0.28 (0.26-1.65)
== END ==
LOC: M LAB REF 13:17
PROVIDERS: ATTEND Internal Medicine Medical Oncology
DX: D64.9 Anemia, unspecified (principal); R16.1 Splenomegaly, not elsewhere classified

== ENCOUNTER → 2016-12-26 | Outpatient (REF) | payer MEDICARE, OTHER ==
[2016-12-29 08:07] LABS: FREE KAPPA LIGHT CHAINS SERUM 63.8 mg/L (3.3-19.4); FREE LAMBDA LIGHT CHAINS SERUM 198.1 mg/L (5.7-26.3); KAPPA/LAMBDA RATIO SERUM 0.32 (0.26-1.65)
== END ==
LOC: M LAB REF 13:35
PROVIDERS: ATTEND Internal Medicine Medical Oncology
DX: D47.2 Monoclonal gammopathy (principal); C85.90 Non-Hodgkin lymphoma, unspecified, unspecified site; R16.1 Splenomegaly, not elsewhere classified

== ENCOUNTER 2017-01-19 07:39 | Outpatient (CLI) | payer MEDICARE, OTHER ==
[~2017-01-19] VITALS: Ht 177.8 cm; Wt 73.6 kg
[~2017-01-19 07:39] MED LIST changes: -HYDR10TAB PO; -PROC20004 INJ
[2017-01-19] MEDS ORDERED: IRON SUCROSE 25 MG in NS 50 ML IV ONE (08:00)
[2017-01-19] MEDS ORDERED: HYDR12.55 PO (08:43)
[2017-01-19] MEDS ORDERED: IMBR1CAP PO (08:46)
[2017-01-19] MEDS ORDERED: PROC20004 INJ (08:48)
[2017-01-19] MEDS ORDERED: IRON SUCROSE 475 MG in NS 250 ML IV ONE (09:00)
== END 2017-01-19 13:00 | disposition home or self-care (01) ==
LOC: M INFU 07:39
PROVIDERS: ATTEND Internal Medicine Nephrology
DX: D50.9 Iron deficiency anemia, unspecified (principal); Z79.899 Other long term (current) drug therapy; Z79.82 Long term (current) use of aspirin; Z88.8 Allergy status to other drugs, medicaments and biological substances

== ENCOUNTER 2017-01-22 12:03 | Inpatient (IN) | payer MEDICARE, OTHER ==
[~2017-01-22] VITALS: Ht 180.3 cm; Wt 72.4 kg
[~2017-01-22 12:03] MED LIST changes: +PROC20004 INJ
[2017-01-22] MEDS ORDERED: NS 1,000 ML IV ONE (12:30)
[2017-01-22] MEDS ORDERED: ONDANSETRON 4MG/2ML VIAL (J2405) IV ONE (12:30)
[2017-01-22 13:13] LABS: ALBUMIN 3.1 GM/DL (3.2-5.2); ALBUMIN/GLOBULIN RATIO 1.03 (1.00-1.93); BILIRUBIN,DIRECT 0.4 MG/DL (0.0-0.2); CALCIUM LEVEL 8.5 MG/DL (8.8-10.2); CREATININE FOR GFR 2.79 MG/DL (0.70-1.30); GLOMERULAR FILTRATION RATE 23.1 (>35); TOTAL PROTEIN 6.1 GM/DL (6.4-8.2)
--- NOTE | 2017-01-22 13:24 | REP ---
Clinical: acute abdominal pain. Technique: Upright view of the chest with supine and upright views of the abdomen and pelvis. Findings: Frontal upright view of the chest demonstrates chronic stable cardiomegaly and interstitial changes without free air below the diaphragm to suspect pneumoperitoneum. Supine and upright views of the abdomen and pelvis demonstrate nonspecific bowel gas pattern without obstruction or perforation. No organomegaly. No abnormal calcifications. Skeletal structures normal for age. Impression: Nonspecific bowel gas pattern. Chronic cardiomegaly and interstitial changes to the lungs. Signed by Bruno Sequeira MD 01/22/2017 01:16 P
[2017-01-22 13:43] LABS: ADD MANUAL DIFFER YES; DIFF SLIDE NUMBER 139; MEAN CORPUSCULAR HEMOGLOBIN 31.1 pg (27.0-33.0); MEAN CORPUSCULAR VOLUME 94.3 fl (80.0-96.0); RED CELL DISTRIBUTION WIDTH 14.7 % (11.5-14.5); WHITE BLOOD COUNT 2.2 K/mm3 (4.0-10.0)
[2017-01-22 14:05] LABS: PLATELET COUNT, AUTOMATED 82 k/mm3 (150-450)
[2017-01-22 14:12] LABS: BANDS 1 % (< 11); BASOPHILS 1 % (0-4)
[2017-01-22 14:14] LABS: MICROCYTOSIS 1+
[2017-01-22 14:47] LABS: INR 1.21
[2017-01-22] MEDS ORDERED: ONDANSETRON 4MG/2ML VIAL (J2405) IV PRN (16:15)
[2017-01-22 16:42] LABS: PERCENT SATURATION 12.2 % (19.7-50.0)
[2017-01-22 16:43] LABS: BASO % 0.6 % (0.0-1.0); EOS % 1.1 % (0.0-3.0); LARGE UNSTAINED CELL # 0.1 K/mm3 (0.0-0.4); LARGE UNSTAINED CELL % 3.7 % (0.0-4.0); LYMPH # 0.6 K/mm3 (1.5-4.5); LYMPH % 22.5 % (24.0-44.0); MONO # 0.2 K/mm3 (0.0-0.8); MONO % 9.2 % (0.0-5.0); NEUTROPHILS # 1.5 K/mm3 (1.8-7.7); NEUTROPHILS % 62.9 % (36.0-66.0); RETIC HEMOGLOBIN CONTENT CHr 32.9 PG (24-36); RETICULOCYTE ABSOLUTE ADVIA212 98 x10(9)/L (17-77)
[2017-01-22 17:27] LABS: REASON FOR REVIEW COMPREHENSIVE REVIEW
[2017-01-22 18:00] VITALS: BP 190/82
[2017-01-22 18:05] VITALS: BP 170/76
--- NOTE | 2017-01-22 18:38 | HPE ---
DATE OF ADMISSION: 01/22/2017 PRIMARY CARE PROVIDER: Dr. Schaefer ONCOLOGIST: Dr. Kay Pedersen, discussed the case with Dr. Boyle SPORTS BOOK WRITER: Dr. Velasquez THORACIC SURGEON: Dr. Viera CHIEF COMPLAINT: Generalized weakness, lightheadedness and diarrhea. HISTORY OF PRESENT ILLNESS: This is an 86-year-old male patient with underlying medical history of Waldenstrom macroglobulinemia, coronary arterial disease with stents in 1986, gastroesophageal reflux disease (GERD), hypertension, chronic kidney disease stage IV, baseline creatinine 2 to 3, anemia of chronic disease with chronic iron deficiency anemia related to underlying hematological condition, pleural effusion status post decortication by Dr. Viera last year and also pericardial effusion also with pericardial window, moderate to severe mitral insufficiency. The patient was within his normal state of health until this morning. The patient was feeling warm and feverish with lightheadedness. No temperature was documented. Had three episodes of diarrhea this morning, watery and nonbloody. Was subsequently brought to the emergency room and found to have pancytopenia. In the emergency room, the patient was given IV hydration with resolution of symptoms. The patient reported back to baseline when examined by hospitalist team. Currently, the patient denies any chest pain, pressure, discomfort, shortness of breath, abdominal pain. Denies any abdominal pain. Denies any lower extremity swelling. Feels comfortable. ALLERGIES: LEVOTHYROXINE, RITUXIMAB. PAST MEDICAL HISTORY: Notable for: 1. Waldenstrom macroglobulinemia. 2. Coronary arterial disease with stents in 1986. 3. Gastroesophageal reflux disease (GERD). 4. Hypertension. 5. Chronic kidney disease stage IV. 6. Anemia of chronic disease with pancytopenia. 7. History of pleural effusion with pericardial effusion, status post decortication. 8. Moderate to severe renal insufficiency. 9. Atrial fibrillation. Not on any anticoagulation. PAST SURGICAL HISTORY: 1. Appendectomy. 2. Pleural decortication. 3. Pericardial window. FAMILY HISTORY: Mother from cancer, father from unknown cause. REVIEW OF SYSTEMS: Reported lightheadedness, fevers, and diarrhea that was watery. All other review of systems negative. HOME MEDICATIONS: - acetaminophen 325 mg by mouth every 6 hours as needed - Norvasc 10 mg by mouth daily - aspirin 81 mg by mouth daily - Imbruvica 280 mg by mouth daily - calcitriol 0.25 mcg by mouth daily - Coreg 3.125 mg by mouth twice a day - Pepcid 40 mg by mouth at night - hydrochlorothiazide 12.5 mg by mouth daily - Procrit injection monthly SOCIAL HISTORY: The patient smokes cigars. Quit smoking 6 years ago. Stop drinking 4 years ago. Colonoscopy 5 years ago that was normal. PHYSICAL EXAMINATION: VITAL SIGNS: Temperature 96, pulse 61, respirations 16, blood pressure 173/81, pulse oximetry 98% on room air. GENERAL: The patient is alert, oriented times three and in no acute distress. HEENT: Normocephalic, atraumatic. PULMONARY: Bilaterally clear to auscultation. CARDIAC: Irregularly irregular. Not tachycardic. ABDOMEN: Soft, nontender. Positive bowel sounds. EXTREMITIES: No clubbing, cyanosis or edema. RECTAL EXAM: Fecal occult negative preliminarily with brown stool. LABORATORY DATA: WBC 2.2, hemoglobin and hematocrit 7.5/22.7, platelets 82. Sodium 142, potassium 5.0, chloride 109, bicarbonate 24, BUN 41, creatinine 2.79. ASSESSMENT AND PLAN: This is an 86-year-old male patient with underlying medical history of Waldenstrom gammaglobulinemia, coronary arterial disease, gastroesophageal reflux disease (GERD), hypertension, chronic kidney disease stage IV, anemia of chronic disease with iron deficiency anemia, history of pleural effusion, mitral insufficiency, admitted to the hospital for pancytopenia with lightheadedness. 1. Pancytopenia. Patient with leukopenia, thrombocytopenia and anemia. Anemia workup has been sent. Bedside rectal examination negative for fecal occult. We will followup stool studies, peripheral smear. Anemia workup as ordered. The patient is currently asymptomatic. Transfuse 1 unit of packed red blood cell. Case discussed with Dr. Boyle, riprap worker/oncologist. As per Dr. Boyle, likely side effect from patient's Imbruvica. The patient had a previous episode of thrombocytopenia. No obvious source of infection at this time. We will followup blood cultures and UA to make sure that there is no other source of infection. Continue to monitor. If the patient spikes a fever in the hospital course, we will give antibiotic. Otherwise, we will hold off. Followup orthostatic vital signs. IV hydration has been given in the emergency room. 2. Waldenstrom macroglobulinemia. Case discussed with Dr. Arnold. Withholding Imbruvica, as per Dr. Boyle, given it is most likely the source of the patient's pancytopenia and diarrhea. We will continue to follow the patient's complete blood count (CBC). Will need further followup with hematology/oncology. 3. Diarrhea. Currently has stopped in the emergency room. We will followup GI panel if it persists. Currently, the patient does not have any abdominal pain. We will hold off additional imaging. 4. Hypertension. The patient is on Norvasc and Coreg. Withholding hydrochlorothiazide. Replace with hydralazine with holding parameters. 5. Chronic kidney disease stage IV. BUN and creatinine at baseline. Continue to follow. We will consult nephrology if things worsen. Strict input and output. Daily weights. 6. Iron deficiency anemia. Supplement iron, vitamin C. Bowel regimen as ordered. 7. Atrial fibrillation. The patient is on beta blockers. We will not pursue anticoagulation given the patient has thrombocytopenia. 8. Coronary arterial disease. Continue aspirin and beta blockers. Continue blood pressure medications as ordered. 9. History of pleural effusion. We will get chest x-ray. Currently negative on physical examination. 10. Gastroesophageal reflux disease (GERD). Continue Pepcid. 11. Deep vein thrombosis (DVT) prophylaxis with thromboembolic compression stockings (TEDS) and sequential compression device (SCD). Avoid pharmacological agents given the patient is thrombocytopenic. We will continue to monitor. If the patient's platelets improve, we will place the patient on anticoagulation for DVT prophylaxis. In the meantime, we will place the patient on TEDS and sequentials. DISPOSITION: Pending clinical improvement, physical therapy (PT).
[2017-01-22 19:54] VITALS: BP 160/70
--- NOTE | 2017-01-22 19:56 | ECGEPIP ---
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
[2017-01-22] MEDS: SENOKOT S TAB PO SCH (20:25)
[2017-01-22] MEDS: FAMOTIDINE 20 MG TAB PO SCH (20:25)
[2017-01-22] MEDS: CARVedilol 3.125 MG TAB PO SCH (20:25)
[2017-01-22] MEDS: **hydrALAZINE** 10 MG TAB PO SCH (20:25)
[2017-01-22] MEDS: FERROUS SULFATE 325MG TAB PO SCH (20:26)
[2017-01-22] MEDS: ASCORBIC ACID 250 MG TAB PO SCH (20:26)
[2017-01-22 21:40] VITALS: BP_SYST 156; BP_SYST 160; BP_DIAS 66; BP_DIAS 68; BP_DIAS 70
[2017-01-22 23:24] VITALS: BP 164/66
[2017-01-23] VITALS (7 sets, daily range): BP systolic 143–176; BP diastolic 55–79
[2017-01-23] MEDS: ACETAMINOPHEN TAB 650MG DOSE (2X325MG) PO PRN ×2 (02:08→11:22)
[2017-01-23 05:33] LABS: INR 1.2
[2017-01-23 05:46] LABS: BASO % 0.3 % (0.0-1.0); EOS % 1.1 % (0.0-3.0); LARGE UNSTAINED CELL # 0.1 K/mm3 (0.0-0.4); LARGE UNSTAINED CELL % 5.1 % (0.0-4.0); LYMPH # 0.5 K/mm3 (1.5-4.5); LYMPH % 31.2 % (24.0-44.0); MEAN CORPUSCULAR HEMOGLOBIN 30.8 pg (27.0-33.0); MEAN CORPUSCULAR HGB CONC 32.9 g/dl (32.0-36.5); MEAN CORPUSCULAR VOLUME 93.4 fl (80.0-96.0); MONO # 0.2 K/mm3 (0.0-0.8); MONO % 9.8 % (0.0-5.0); NEUTROPHILS # 0.8 K/mm3 (1.8-7.7); NEUTROPHILS % 52.4 % (36.0-66.0); RED CELL DISTRIBUTION WIDTH 16.3 % (11.5-14.5); WHITE BLOOD COUNT 1.5 K/mm3 (4.0-10.0)
[2017-01-23 05:52] LABS: PLATELET COUNT, AUTOMATED 69 k/mm3 (150-450)
[2017-01-23 06:03] LABS: ALBUMIN/GLOBULIN RATIO 0.91 (1.00-1.93); CALCIUM LEVEL 8.5 MG/DL (8.8-10.2); CREATININE FOR GFR 2.58 MG/DL (0.70-1.30); GLOMERULAR FILTRATION RATE 25.3 (>35); MAGNESIUM LEVEL 2.2 MG/DL (1.8-2.4); POTASSIUM SERUM 4.7 MEQ/L (3.5-5.1); TOTAL PROTEIN 6.3 GM/DL (6.4-8.2)
[2017-01-23] MEDS ORDERED: hydroCHLOROthiazide 12.5 MG CAPSULE PO SCH (09:00)
[2017-01-23] MEDS: SENOKOT S TAB PO SCH ×2 (09:08→20:40)
[2017-01-23] MEDS: **hydrALAZINE** 10 MG TAB PO SCH ×4 (09:08→20:40)
[2017-01-23] MEDS: ASPIRIN 81 MG ENTERIC TAB PO SCH (09:08)
[2017-01-23] MEDS: FERROUS SULFATE 325MG TAB PO SCH ×2 (09:08→20:40)
[2017-01-23] MEDS: CALCITRIOL 0.25 MCG CAP (S0169) PO SCH (09:08)
[2017-01-23] MEDS: ASCORBIC ACID 250 MG TAB PO SCH ×2 (09:09→20:41)
[2017-01-23] MEDS: amLODIPine 10 MG TAB PO SCH (09:09)
[2017-01-23] MEDS: CARVedilol 3.125 MG TAB PO SCH ×2 (09:09→20:40)
[2017-01-23 10:53] LABS: FOLATE 16.2 NG/ML (>5.4)
--- NOTE | 2017-01-23 14:20 | REP ---
Clinical: Crackles. Technique: PA and lateral. Comparison: 01/22/2017. Findings: Stable cardiomegaly is appreciated along with diffuse chronic interstitial changes. Superimposed basilar atelectasis and small pleural reactions cannot be excluded. No pneumothorax. Skeletal structures stable. Impression: Superimposed basilar atelectasis and small pleural reactions. Cannot exclude mild interstitial edema. Signed by Bruno Sequeira MD 01/23/2017 02:10 P
[2017-01-23] MEDS: FAMOTIDINE 20 MG TAB PO SCH (20:40)
[2017-01-23 22:31] LABS: MEAN CORPUSCULAR VOLUME 90.8 fl (80.0-96.0); RED CELL DISTRIBUTION WIDTH 16.6 % (11.5-14.5); WHITE BLOOD COUNT 2.5 K/mm3 (4.0-10.0)
--- NOTE | 2017-01-23 22:52 | IPN ---
DATE: 01/23/2017 SUBJECTIVE: Patient is seen and examined in the room today. Patient denies any fever or chills, denies any issue with breathing, denies any acute changes. Patient stated his weakness is improving. No overnight events are reported on telemetry. OBJECTIVE: VITAL SIGNS: Temperature 97.6, pulse 72, respirations 18, blood pressure 143/69, pulse oximetry 98% in room air. GENERAL: No sign of acute distress, alert and oriented times three. HEENT: Normocephalic, atraumatic. Extraocular motors grossly intact. CARDIOVASCULAR: Positive S1, S2, irregularly irregular. LUNGS: Clear to auscultation bilaterally. ABDOMEN: Soft, nontender, nondistended. Bowel sounds present. EXTREMITIES: No edema. No sign of cyanosis. LABORATORY DATA: WBC 1.5, hemoglobin 9.9, hematocrit 30.2, platelet count 69. Sodium 142, potassium 4.7, chloride 110, carbon dioxide 23, BUN 40, creatinine 2.58, GFR 25.3, fasting glucose 79, calcium 8.5, magnesium 2.2, total bilirubin 1, AST 14, ALT 10, alkaline phosphatase 57, C-reactive protein 2.96, total protein 6.3, albumin 3. ASSESSMENT AND PLAN: 1. Pancytopenia. Most likely secondary to patient's chemotherapy. Patient was diagnosed with Waldenstrom macroglobulinemia. Patient was started on Imbruvica by Dr. Pedersen. At the time of admission, patient has a white blood cell (WBC) of 2.2 and hemoglobin of 7.5 and hematocrit of 22.7, and platelet count of 82. Yesterday, due to significant anemia, patient received one unit packed red blood cells transfusion. Hemoglobin improved to 9.9, hematocrit improved to 30.2, however white blood cell (WBC) and platelet count continued to drop. Later, a repeat hemoglobin and hematocrit was done and patient still had continued drop in hemoglobin and hematocrit. Stool occult blood test is negative. I discussed the case with oncologist, Dr. Kay Pedersen. Dr. Pedersen gave the recommendation of giving two additional units packed red blood cells transfusion and patient had a hemoglobin of 7.8 at 2:[address] Pedersen will also evaluate patient and assist on the case tomorrow. Today, Dr. Pedersen has been assisting on the case during her day off. Will continue to hold the patient's Imbruvica. At this moment, patient does not have any fevers. Will followup with an anemia workup. 2. Waldenstrom macroglobulinemia. Due to severe pancytopenia, Imbruvica will be on hold. We appreciate Dr. Kay Pedersen further assistance. 3. Atrial fibrillation. Not on any anticoagulation. Currently, rate is in the satisfactory range. Patient is currently on Coreg. 4. History of pleural effusion with pericardial effusion status post chest tube insertion. Repeated chest x-ray was performed and stable. 5. Moderate to severe renal insufficiency. Patient had one unit packed red blood cells transfusion yesterday and renal function started to improve. Will continue to monitor. Patient seemed to have an intravascular dehydration. Patient will have two units packed red blood cells transfusion today. 6. Acute on chronic kidney disease stage IV, improving. 7. Gastroesophageal reflux disease. Patient is continued on Pepcid. 8. Hypertension. Currently, patient is on Coreg and Norvasc. Patient's hydrochlorothiazide has been on hold due to acute on chronic kidney disease. Patient is currently placed on hydralazine with holding parameters. 9. History of coronary artery disease, on aspirin and carvedilol. 10. Deep venous thrombosis (DVT) prophylaxis. Due to severe thrombocytopenia, patient is on thromboembolism deterrents (TEDs) and sequential compression device.
--- NOTE | 2017-01-24 01:50 | REPUSA ---
CLINICAL HISTORY: Shortness of breath. COMMENTS: Minimal right pleural effusion. Small left pleural effusion. Passive atelectatic airspace disease of the lower lobes. There are changes of degenerative joint disease. The cardiac silhouette is enlarged. There is evidence for pulmonary venous congestion compatible with CHF. There is no definite radiographic evidence for a lung mass or consolidation. Bony structures appear normal. IMPRESSION: 1. Enlarged cardiac silhouette. 2. Pulmonary venous congestion compatible with CHF. 3. Small bilateral pleural effusions. Thank you for your kind referral of this patient.
[2017-01-24] MEDS ORDERED: FUROSEMIDE 40 MG/4 ML VIAL (J1940) IV ONE (02:00)
[2017-01-24 04:00] VITALS: BP 187/86
[2017-01-24 05:25] LABS: ADD MANUAL DIFFER YES; DIFF SLIDE NUMBER 80; MEAN CORPUSCULAR HEMOGLOBIN 30.3 pg (27.0-33.0); MEAN CORPUSCULAR HGB CONC 33.8 g/dl (32.0-36.5); MEAN CORPUSCULAR VOLUME 89.7 fl (80.0-96.0); RED CELL DISTRIBUTION WIDTH 16.7 % (11.5-14.5); WHITE BLOOD COUNT 2.6 K/mm3 (4.0-10.0)
[2017-01-24 05:26] LABS: INR 1.21
[2017-01-24 05:29] LABS: PLATELET COUNT, AUTOMATED 96 k/mm3 (150-450)
[2017-01-24 05:39] LABS: ALBUMIN 3.2 GM/DL (3.2-5.2); ALBUMIN/GLOBULIN RATIO 0.89 (1.00-1.93); BILIRUBIN,TOTAL 1.8 MG/DL (0.2-1.0); CALCIUM LEVEL 8.9 MG/DL (8.8-10.2); CREATININE FOR GFR 2.46 MG/DL (0.70-1.30); GLOMERULAR FILTRATION RATE 26.8 (>35); POTASSIUM SERUM 4.3 MEQ/L (3.5-5.1); TOTAL PROTEIN 6.8 GM/DL (6.4-8.2)
[2017-01-24] MEDS: amLODIPine 10 MG TAB PO SCH (05:50)
[2017-01-24 06:27] LABS: ANISOCYTOSIS 1+
[2017-01-24 07:45] VITALS: BP_SYST 142; BP_SYST 158; BP_SYST 164; BP_DIAS 56; BP_DIAS 60; BP_DIAS 70
[2017-01-24] MEDS: SENOKOT S TAB PO SCH ×2 (09:51→21:16)
[2017-01-24] MEDS: CALCITRIOL 0.25 MCG CAP (S0169) PO SCH (09:51)
[2017-01-24] MEDS: **hydrALAZINE** 10 MG TAB PO SCH ×4 (09:52→21:18)
[2017-01-24] MEDS: ASCORBIC ACID 250 MG TAB PO SCH ×2 (09:52→21:16)
[2017-01-24] MEDS: ACETAMINOPHEN TAB 650MG DOSE (2X325MG) PO PRN (09:52)
[2017-01-24] MEDS: ASPIRIN 81 MG ENTERIC TAB PO SCH (09:52)
[2017-01-24] MEDS: CARVedilol 3.125 MG TAB PO SCH ×2 (09:53→21:17)
[2017-01-24] MEDS: FERROUS SULFATE 325MG TAB PO SCH ×3 (09:53→21:00)
[2017-01-24 12:00] VITALS: BP 178/79
[2017-01-24] MEDS: FUROSEMIDE 40 MG/4 ML VIAL (J1940) IV SCH ×2 (12:47→17:22)
[2017-01-24 16:00] VITALS: BP 187/82
[2017-01-24 18:48] LABS: CALCIUM LEVEL 9.4 MG/DL (8.8-10.2); CREATININE FOR GFR 2.73 MG/DL (0.70-1.30); GLOMERULAR FILTRATION RATE 23.7 (>35); POTASSIUM SERUM 3.9 MEQ/L (3.5-5.1)
[2017-01-24 20:00] VITALS: BP 150/83
--- NOTE | 2017-01-24 20:23 | CR ---
DATE OF CONSULTATION: 01/24/2017 Dr. 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 Mr. 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 His initial presentation in 2016 involve splenomegaly, fatigue, dyspnea with L sided malignant pleural effusion. L Thoracentesis yielded the lymphoma diagnosis. He subsequently developed right effusion requiring drainage and underwent R pleurodesis. He has on ibrutinib since spring 2015 with major response on imaging and clinically, with basline ECOG PS 0 -- chopping wood, independent of ADLs, living alone -- with stable chronic intermittent exertional dyspnea. Lymphoma monitoring labs have not normalized but have impromved with reduction of serum IgM. His lymphoma treatment has been complicated by ibrutinib-induced pancytopenia, pneumonia, and atrial fibrillation requiring hospitalization in July. These are well known side effects of ibrutinib. He recovered off drug, had an approximate 6 week ibrutinib holiday, then restarted at lower dose and has been mostly stable since except for moderate anemia and renal insufficiency. He also has chronic renal insufficiency, followed by Dr. Susanne Velasquez and recently started on Procrit and last wee received iron infusion for persistent anemia. It was a day or two after this that he developed fairly sudden onset weakness, shortness of breath, and was brought to the hospital. More than a week before that time, he reports new hoarseness and denies nasal congestion or new cold-like or viral-like symptoms. On admission now, labs notable for WBC 1.5, hemoglobin 9.9, hematocrit 30.2, platelets 69, representing a significant drop from his in-office labs recently. He received 1-unit transfusion, but hemoglobin additionally dropped to 7.8. This was also in the setting of acute leukopenia and thrombocytopenia, suggesting drug effect. Hemocult was negative and pt denies bloody or tarry stool. Following two additional units of RBC Hb has corrected to 10.6 and is stable over 24 hours. Hemoloysis labs are equivocal: LDH elevated, AST normal, total bilirubin mildly elevated, haptoglobin pending. LDH can also be a marker of lymphoma cell turnover. Off ibrutinib and despite hydration, WBC has improved, now 2.6, as have platelets, 96, up from 69, suggesting drug related myelosuppression. At the bedside Mr. Zabala is hoarse but awake, alert, reclining, accompanied by his daughter. He reports feeling much better since the blood transfusions. His appetite is so-so, but he denies any major recent weight loss, sweats, fevers or progressive exertional dyspnea. Rather his symptoms came on fairly suddenly on Monday, resulting in his coming to the hospital abruptly. LIMITED PHYSICAL EXAMINATION: VITAL SIGNS: Temperature 98.7, blood pressure 187/82, heart rate 79, oxygen saturation 97% on room air, respiratory rate 20. ABDOMEN: No palpable splenomegaly. EXTREMITIES: No edema. LABORATORY DATA: As noted. 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 New hoarseness. The pancytopenia is likely drug related but could be multifactorial: ?hemolysis as part of an acute iron infusion reaction must be considered; ?acute viral illness leading to hoarseness. The patient has known baseline multifactorial anemia due in part to renal insufficiency and in part to lymphoma. He was well until a few days ago, and lymphoma surveillance labs have shown chronic mildly elevated free kappa and chronic mildly elevated LDH. The differential diagnosis for his acute rise in LDH includes acute hemolysis associated with his iron infusion, transfusion related, versus lymphoma progression related. The hoarseness is not associated with other viral symptoms , but in an 86-year-old man with lymphoma and thus relative chronic immune compromise, his current constellation of findings could be associated with an acute infectious illness. He feels much better after infusions, and off ibrutinib his counts are improving. RECOMMENDATIONS: 1. If Krish is stable overnight with no recurrence of shortness of breath, I would supportive care as tolerated and oncology/hematology followup outpatient. He has been scheduled as part of routine surveillance for CT scan next week with followup with me in the office a week later. 2. If he has recurrent acute onset shortness of breath overnight, consider chest CT of the chest to establish whether there is recurrent thoracic lymphoma progression (recurrent laryngeal nerve disturbance could explain hoarseness). If CT showed progressive chest lymphoma, I would want to speak extensively with Krish about options. He has steadfastly refused chemotherapy. He has high-risk Waldenstrom's macroglobulinemia/lymphoma, with poorer than usual prognosis for this usually indolent disease. To date he's enjoyed relative normal functioning on ibrutinib, though requiring a dose reduction for pancytopenia. I'll follow as needed. Thanks for this consult.
--- NOTE | 2017-01-24 20:38 | IPN ---
DATE: 01/24/2017 The patient is seen and examined at the bedside. Chart has been reviewed. Overnight, the patient had severe respiratory distress. Chest x-ray shows new onset pulmonary edema. The patient was given intravenous Lasix with 600 mL of urine after Lasix was given with symptomatic improvement, but still complaints of occasional shortness of breath, no chest pain, pressure or tightness, lightheadedness, dizziness, fevers, chills or cough this morning. Denies any nausea, vomiting or diaphoresis. Telemetry is unremarkable with irregular heart rate 77 to 98. VITAL SIGNS: Temperature is 98.4, pulse 77, respiratory 20, blood pressure 164/70 to 178/79, 96% on room air. GENERAL: The patient is awake, alert, oriented to person, place and time, answering questions appropriately. No respiratory distress or use or respiratory accessory muscles. Mild jugular venous distension. No cervical lymphadenopathy , thyromegaly or pharyngeal erythema. Pupils are round, reactive to light. Extraocular muscles intact are intact. There is mild jugular venous distension. LUNGS: Diminished breath sounds with fine crackles at bilateral bases. No wheezing. HEART: S1 and S2. Irregularly irregular. ABDOMEN: Soft, nontender, nondistended. Positive bowel sounds. EXTREMITIES: No pitting edema, cyanosis or clubbing. LABORATORY DATA: White count 2.6, hemoglobin 10, hematocrit 30, platelet count of 96. Sodium 141, potassium 4.3, chloride 109, bicarbonate 21, BUN 39, creatine 2.46, previous creatine of 2.58, glucose of 102. BNP 1.8, AST 23, ALT 12, LDH of 765. Gastrointestinal (GI) panel on 01/23 negative. Hemoccult stool on 01/23 negative. IMAGING STUDY: Chest x-ray 01/24: Congestive heart failure (CHF). Pulmonary venous congestion with a large cardiac silhouette. Small bilateral pleural effusion. ASSESSMENT AND PLAN: This is an 86-year-old male with history of Waldenstrom macroglobulinemia, coronary artery disease with stent in 1986, reflux, hypertension, chronic kidney disease stage IV, baseline creatine of 2 to 3, anemia of chronic disease with chronic iron deficiency anemia related to underlying hematological condition, pleural effusion, status post decortication and pericardial effusion requiring pericardial window with mild to moderate mitral insufficiency, presented to the emergency room on 01/22/2017 with complaints of weakness, lightheadedness and diarrhea. The patient was found to be pancytopenic, was hemoccult negative. He was transfused one unit of red blood cell transfusion. manager pharmacy pathologist, Dr. Boyle, was consulted, thought that this was secondary to patient's Imbruvica. No obvious signs of infection initially for his diarrhea. Gastrointestinal (GI) panel was negative and unremarkable with outpatient hydrochlorothiazide initially due to diarrhea and chronic kidney disease. He was kept on beta blockade for his atrial fibrillation. No anticoagulation in light of his thrombocytopenia. He was kept on thromboembolic stockings during his hospital stay and after 3 units of red blood cells, leukocyte reduced transfusion, he developed shortness of breath and was found to have pulmonary edema, which was treated with intravenous fluids Lasix times one with improvement. Echocardiogram is still pending. CURRENT ISSUES ARE FOLLOWS: 1. Congestive heart failure, new onset. Prior history of pericardial effusion and right-sided pleural effusion, status post decortication by Dr. Viera. Will repeat stat 2-echocardiogram to rule out recurrent pericardial effusion. If the chest x-ray shows widened enlarged cardiac silhouette and persistent congestive heart failure (CHF). Will check for systolic or diastolic dysfunction. Check for significant valvular disease, symptomatic care with IV Lasix with continued monitoring of his kidneys with recheck metabolic panel. Nephrology consult if worsens. 2. Symptomatic anemia presenting hemoglobin of 7.5 secondary to Imbruvica. The patient has been transfused 3 units of red blood cell transfusion appears to be holding steady, we are avoiding medications that can cause significant thrombocytopenia. 3. Pancytopenia secondary to Imbruvica. It is for Waldenstrom macroglobulinemia. The patient's is complete blood count (CBC) monitored. No active signs of bleeding. No other signs of infection or diarrhea. Gastrointestinal (GI) panel was negative. Hold off on antibiotics as it appears to have been a viral etiology. Hemoccult stool was negative. 4. Acute on chronic renal failure, stage IV. Avoid nephrotoxins. Repeat metabolic panel. Monitor for worsening. 5. Hypertension uncontrolled. 6. History of atrial fibrillation, ventricular rate of 77 to 96. The patient is currently on Norvasc, Coreg 3.125 mg twice a day and hydralazine, as well as Lasix. Will diurese until the patient's euvolemic and start to increase the patient's Coreg if needed. No JENNY inhibitor or ARB due to chronic kidney disease. 7. Abnormalities liver function tests most likely secondary to congested liver with congestive heart failure, await echocardiogram results and treat accordingly. 8. Waldenstrom macroglobulinemia. Outpatient followup with his ergonomist. At this time, Imbruvica has been discontinued due to side-effects of pancytopenia. 9. Iron deficiency anemia. Continue iron and vitamin C. 10. Atrial fibrillation on beta blockade. No anticoagulation due to significant thrombocytopenia. 11. History of coronary artery disease (CAD) on aspirin and beta blockade, Coreg. 12. History of pleural effusion with talc pleurodesis and monitor the patient's respiratory status and repeat chest x-ray. Obtain CT chest. May need thoracic surgery consult if persistent. 13. Reflux. Continue on Pepcid. 14. Deep vein thrombosis (DVT) prophylaxis with thromboembolic compression stockings. We are avoiding anything that cause worsening thrombocytopenia. Therefore, no heparin or Lovenox. MTDD
--- NOTE | 2017-01-24 20:56 | ECHO ---
DATE OF PROCEDURE: 01/24/2017 REFERRING PHYSICIAN: Dr. Valdez INDICATION: Dyspnea. History of cardiac tamponade. The patient measures 180 cm and weighs 76 kg. DIMENSIONS: IVS: 1.4 LV: 5.3 LVPW: 1.2 LA: 4.9 Aorta: 3.7 FINDINGS: The study is of fair technical quality with rather difficult visualization. The patient was in atrial fibrillation with controlled rate during the study. Left ventricle is of normal size and overall normal systolic function, I estimate ejection fraction (EF) around 60-65%. Right ventricle also appears grossly normal size and systolic function. Both atria are severely enlarged. Aortic valve is sclerotic, but it has normal mobility. There are degenerative abnormalities of mitral valve with mitral annular calcifications and thickening of mitral leaflets but leaflet mobility is preserved. Tricuspid and pulmonic valves appear normal. Small noncompressive pericardial effusion is noted. Inferior vena cava is markedly dilated and has no appreciable collapse with respiration, indicative of likely very high central venous pressure. Aortic root is borderline dilated. Aortic arch was poorly seen. Abdominal aorta appears normal. Left pleural effusion is seen. Doppler interrogation of aortic valve reveals no stenosis and approximately mild to moderate insufficiency. There is likely moderate mitral insufficiency and moderate tricuspid insufficiency. Calculated pulmonary artery pressure is at a minimum in the high 50s that would correspond to moderately severe pulmonary hypertension. Evaluation of diastolic function is inconclusive due to irregularity of the heart rate. CONCLUSIONS: 1. The study is of fair technical quality. 2. Normal left ventricular (LV) size with mild left ventricular hypertrophy (LVH) and preserved LV systolic function. 3. Severe biatrial enlargement. 4. Mild to moderate aortic insufficiency. 5. Moderate mitral and tricuspid insufficiency. 6. High central venous pressure. 7. At least moderately severe pulmonary hypertension. 8. Small pericardial effusion. 9. Left pleural effusion. COMMENT: Subacute bacterial endocarditis (SBE) prophylaxis is not recommended.
[2017-01-24] MEDS: FAMOTIDINE 20 MG TAB PO SCH (21:17)
[2017-01-25] VITALS: BP 180/83
[2017-01-25 00:44] LABS: CALCIUM LEVEL 9.5 MG/DL (8.8-10.2); CREATININE FOR GFR 2.53 MG/DL (0.70-1.30); GLOMERULAR FILTRATION RATE 25.9 (>35); POTASSIUM SERUM 4.2 MEQ/L (3.5-5.1)
[2017-01-25 04:00] VITALS: BP 133/63
[2017-01-25 05:49] LABS: INR 1.27
[2017-01-25 05:51] LABS: ADD MANUAL DIFFER YES; DIFF SLIDE NUMBER 60; MEAN CORPUSCULAR HEMOGLOBIN 30.6 pg (27.0-33.0); MEAN CORPUSCULAR HGB CONC 34.3 g/dl (32.0-36.5); MEAN CORPUSCULAR VOLUME 89.2 fl (80.0-96.0); RED CELL DISTRIBUTION WIDTH 16.2 % (11.5-14.5); WHITE BLOOD COUNT 2.3 K/mm3 (4.0-10.0)
[2017-01-25 05:54] LABS: PLATELET COUNT, AUTOMATED 97 k/mm3 (150-450)
[2017-01-25] MEDS: FUROSEMIDE 40 MG/4 ML VIAL (J1940) IV SCH ×2 (06:09)
[2017-01-25 06:34] LABS: ANISOCYTOSIS 1+
[2017-01-25 07:30] VITALS: BP 149/68
[2017-01-25 07:34] LABS: ALBUMIN 3.1 GM/DL (3.2-5.2); ALBUMIN/GLOBULIN RATIO 0.86 (1.00-1.93); BILIRUBIN,TOTAL 1.8 MG/DL (0.2-1.0); CALCIUM LEVEL 9.4 MG/DL (8.8-10.2); CREATININE FOR GFR 2.65 MG/DL (0.70-1.30); GLOMERULAR FILTRATION RATE 24.6 (>35); POTASSIUM SERUM 3.9 MEQ/L (3.5-5.1); TOTAL PROTEIN 6.7 GM/DL (6.4-8.2)
[2017-01-25] MEDS ORDERED: HYDR10TAB PO (07:54)
[2017-01-25] MEDS: ASPIRIN 81 MG ENTERIC TAB PO SCH (08:43)
[2017-01-25] MEDS: FERROUS SULFATE 325MG TAB PO SCH (08:43)
[2017-01-25] MEDS: ASCORBIC ACID 250 MG TAB PO SCH (08:43)
[2017-01-25] MEDS: CALCITRIOL 0.25 MCG CAP (S0169) PO SCH (08:43)
[2017-01-25] MEDS: amLODIPine 10 MG TAB PO SCH (08:44)
[2017-01-25] MEDS: SENOKOT S TAB PO SCH (08:44)
[2017-01-25] MEDS: CARVedilol 3.125 MG TAB PO SCH (08:44)
--- NOTE | 2017-01-25 08:44 | REP ---
PORTABLE CHEST X-RAY: Single view. HISTORY: Shortness of breath. Comparison study January 24, 2017. FINDINGS: There is linear discoid atelectasis again noted in the left base mild in degree. Perihilar vascular congestion pattern is improved. Cardiomegaly persists unchanged. There is still some fissural thickening in the minor fissure but no free pleural effusion appears to be present. EKG electrodes are again seen. IMPRESSION: Improved vascular congestion pattern. Signed by Ayo Chang MD 01/25/2017 09:52 A
[2017-01-25] MEDS: **hydrALAZINE** 10 MG TAB PO SCH ×2 (08:45→13:19)
--- NOTE | 2017-01-25 08:47 | REP ---
Clinical: Waldenstrom's gammaglobinemia with acute hoarseness. Comparison: 10/12/2016. Findings: Evaluation demonstrates increasing mediastinal adenopathy. Specifically, a lymph node in the aortopulmonary window previously measuring approximately 15 mm now measures 28 mm, a prevascular lymph node previously measuring approximately 6 mm now measures 9 mm, and eight pretracheal lymph node previously measuring 14 mm short-axis diameter now measures 17 mm. The bilateral lung camacho demonstrate improved aeration when compared to prior examination with continued evidence for moderate bronchiectasis, small irregular opacity in the posterior left upper lobe (images 40 - 46), and fibroatelectatic changes to the left lower lobe and medial right lower lobe. No new consolidation, significant nodule or mass lesion is appreciated. Small residual right pleural effusion is decreased from prior examination. Mediastinum demonstrates cardiomegaly with small stable pericardial effusion as well as stable atherosclerotic changes to the thoracic aorta and coronary arteries. Limited evaluation of the upper abdomen demonstrates incompletely evaluated splenomegaly, normal bilateral adrenal glands and bilateral presumed simple and complex renal lesions/cysts. Impression: 1. Mediastinum demonstrates increased adenopathy which requires correlation and may be related to patient's symptoms. 2. The lung camacho demonstrate chronic-appearing changes with improved aeration and decreased infiltrates and pleural effusion as compared to prior examination dated 10/12/2016. 3. Stable cardiomegaly and small pericardial effusion along with atherosclerotic changes. 4. Limited abdomen suggests continued splenomegaly as well as simple and complex renal lesions which may represent cysts. Signed by Bruno Sequeira MD 01/25/2017 08:38 A
[2017-01-25] MEDS ORDERED: FURO20TA2 PO (11:37)
[2017-01-25 13:19] VITALS: BP 140/72
--- NOTE | 2017-01-25 15:52 | DSES ---
DATE OF ADMISSION: 01/22/2017 DATE OF DISCHARGE: 01/25/2017 PRIMARY CARE PHYSICIAN: Dr. Schaefer ONCOLOGIST: Dr. Kay Pedersen CLASS C DRIVER: Dr. Velasquez THORACIC SURGEON: Dr. Viera PRIMARY DISCHARGE DIAGNOSES: 1. Pancytopenia secondary to chemotherapy, Imbruvica 2. Waldenstrom's macroglobulinemia. 3. Diarrhea. Negative Clostridium difficile. 4. Hypertension. 5. New-onset congestive heart failure with fluid overload, ejection fraction of 60-65% with normal systolic function. 6. Mild to moderate aortic insufficiency. 7. Moderate mitral and tricuspid insufficiency. 8. Moderately severe pulmonary hypertension. 9. Small pericardial effusion. 10. Left pleural effusion. 11. Chronic kidney disease, stage IV. 12. Moderate bronchiectasis. 13. Splenomegaly. 14. Simple complex renal cysts. 15. IgM kappa lymphoplasmacytic lymphoma. HOSPITAL COURSE: This is an 86-year-old male with a history of Waldenstrom's macroglobulinemia, coronary artery disease with stents in 1986, reflux, hypertension, chronic kidney disease, stage IV, baseline creatinine 2-3, anemia of chronic disease with chronic iron deficiency anemia related to underlying hematological condition, pleural effusion, pericardial effusion, no current pericardial window, pleural effusion status post decortication by Dr. Viera 2016, moderate severe mitral insufficiency was in his usual state of health until 01/22/2017, when he complained of lightheadedness, feeling warm with subjective fevers with three episodes of diarrhea. Patient was brought into the emergency room and was found to have pancytopenia, thought to be secondary to his Imbruvica. He responded well to intravenous fluid hydration with a creatinine of 2.79. Overnight patient was found to have symptomatic anemia with hemoglobin of 7.5. Was transfused 1 unit of leukocyte-reduced red blood cell. No antibiotics were given, as the patient remained afebrile during this admission with intravenous (IV) fluids given for dehydration of 3.5 liters. Patient developed congestive heart failure, new onset. Patient was given intravenous Lasix 40 mg intravenously times five doses with resultant improvement. Patient was diuresed with resultant improvement in symptoms. Chest x-ray showed pulmonary edema. Chest CT performed to evaluate patient's history of lymphocytic lymphoma. Showed slight increase in adenopathy in the mediastinum from previous 15 mm to 28 mm in the aorta pulmonary window. Perivascular lymph node previously measured 6 mm, now measured 9 mm. Bilateral lung camacho had improved aeration with evidence of moderate bronchiectasis. Per Dr. Kay Pedersen, if the patient could ambulate around the floor with no complaints of shortness of breath or desaturation, he may be discharged home with outpatient followup to check for serum viscosity. May need plasmapheresis. Patient's room air saturation with ambulation was 97-98% per nursing. CT chest again is concerning for inguinal lymphadenopathy. He was feeling well and was discharged home to followup with primary care physician, Dr. Schaefer, Dr. Kay Pedersen to check on serum viscosity to discuss the need for plasmapheresis, as well as automatic driller and reamer, Dr. Velasquez, to monitor his chronic kidney disease, stage IV, in light of new onset of congestive heart failure. He will need a possible referral to cardiology to follow his diastolic dysfunction. Cardiac rehabilitation at discharge: Strict intake and output, daily weights, and to call his physician if he gains more than 2 pounds and repeat metabolic panel as outpatient. LABORATORIES ON DISCHARGE: White count 2.3, hemoglobin 9.7, hematocrit 28.2, platelet count 97,000. Sodium 140, potassium 3.9, chloride 107, bicarbonate 24, BUN 45, creatinine 2.65 , baseline creatinine of 2-3, glucose of 83. Serum viscosity is pending. IMAGING STUDIES: CT of the chest 01/25/2017 shows splenomegaly, simple and complex renal lesions, which may represent cysts, cardiomegaly, small pericardial effusion, along with atherosclerotic changes. Chronic changes with decreased infiltrates. Mediastinum with increased adenopathy. TIME SPENT ON DISCHARGE: 45 minutes. [facility]
== END 2017-01-25 14:02 | disposition home or self-care (01) | DRG 808 ==
LOC: M ED 12:03 → EDBD 12:03 → M ED INP 16:13 → M PCU 18:06
PROVIDERS: ADMIT Hospitalist; ATTEND General Practice
PROC: 30233N1 Transfusion of Nonautologous Red Blood Cells into Peripheral Vein, Percutaneous Approach (ICD-10-PCS; principal; 2017-01-22)
DX: D61.811 Other drug-induced pancytopenia (principal); J81.0 Acute pulmonary edema; N18.4 Chronic kidney disease, stage 4 (severe); I13.0 Hypertensive heart and chronic kidney disease with heart failure and stage 1 through stage 4 chronic kidney disease, or unspecified chronic kidney disease; C88.0 Waldenstrom macroglobulinemia; I50.9 Heart failure, unspecified; I48.91 Unspecified atrial fibrillation; K21.9 Gastro-esophageal reflux disease without esophagitis; D61.810 Antineoplastic chemotherapy induced pancytopenia; F17.290 Nicotine dependence, other tobacco product, uncomplicated; J47.9 Bronchiectasis, uncomplicated; I08.3 Combined rheumatic disorders of mitral, aortic and tricuspid valves; N28.1 Cyst of kidney, acquired; I25.10 Atherosclerotic heart disease of native coronary artery without angina pectoris; D63.8 Anemia in other chronic diseases classified elsewhere; Z88.8 Allergy status to other drugs, medicaments and biological substances; Z95.9 Presence of cardiac and vascular implant and graft, unspecified; Z79.82 Long term (current) use of aspirin; Z79.899 Other long term (current) drug therapy

== ENCOUNTER → 2017-01-30 | Outpatient (CLI) | payer MEDICARE, OTHER ==
[~2017-01-30] MED LIST changes: +HYDR10TAB PO
[2017-01-30 15:38] LABS: IMMUNOGLOBULIN G 587 MG/DL (681-1648); IMMUNOGLOBULIN M 711 MG/DL (40-230); TOTAL PROTEIN 6.4 GM/DL (6.4-8.2)
[2017-02-01 00:06] LABS: BETA 2 MICROGLOBULIN 13.3 mg/L (0.6-2.4); FREE LAMBDA LIGHT CHAINS SERUM 208.9 mg/L (5.7-26.3); KAPPA/LAMBDA RATIO SERUM 0.29 (0.26-1.65)
[2017-02-02 09:19] LABS: ALBUMIN 3.43 GM/DL (3.29-5.55); ALBUMIN % 53.6 % (55.8-66.1)
== END ==
LOC: M RAD 11:00
PROVIDERS: ATTEND Internal Medicine Medical Oncology
DX: C85.90 Non-Hodgkin lymphoma, unspecified, unspecified site (principal)

== ENCOUNTER → 2017-02-07 | Outpatient (REF) | payer MEDICARE, OTHER ==
[2017-02-10 00:55] LABS: FREE KAPPA LIGHT CHAINS SERUM 56.9 mg/L (3.3-19.4); FREE LAMBDA LIGHT CHAINS SERUM 217.3 mg/L (5.7-26.3); KAPPA/LAMBDA RATIO SERUM 0.26 (0.26-1.65)
== END ==
LOC: M LAB REF 10:04
PROVIDERS: ATTEND Internal Medicine Medical Oncology
DX: C85.90 Non-Hodgkin lymphoma, unspecified, unspecified site (principal)

== ENCOUNTER → 2017-02-27 | Outpatient (CLI) | payer MEDICARE, OTHER ==
[~2017-02-27] MED LIST changes: +E-Z-PAQUE 96% w/w SUSP 176GM BTL As Ordered ONE; +VARIBAR NECTAR 40% w/v 240ML SUSP BTL As Ordered ONE; +VARIBAR PUDDING 40% w/v 230ML TUBE As Ordered ONE
--- NOTE | 2017-02-27 12:05 | REP ---
COOKIE SWALLOW: The procedure was performed by CHILANGO Medrano under the direct supervision of Dr. Chang. All imaging was reviewed with Dr. Chang prior to dictation. The procedure was attended by Martha Triplett from speech pathology. The patient was able to ingest liquid barium in various consistencies. These consisted of thin, puree, mixed, and solid. The patient was able to successfully swallow all consistencies without penetration or aspiration. A full report from speech pathology is to follow. Fluoroscopy time of 1 minute 36 seconds were utilized for this procedure. Reviewed by CHILANGO Mccullough 02/27/2017 12:57 PEdited and Signed by Ayo Chang MD 02/27/2017 02:16 P
== END ==
LOC: M RAD 11:11
PROVIDERS: ATTEND Otolaryngology
DX: R13.10 Dysphagia, unspecified (principal)
CPT/HCPCS: 74230; 92611; G8996; G8997; G8998

== ENCOUNTER → 2017-02-28 | Outpatient (REF) | payer MEDICARE, OTHER ==
[~2017-02-28] MED LIST changes: -E-Z-PAQUE 96% w/w SUSP 176GM BTL As Ordered ONE; -VARIBAR NECTAR 40% w/v 240ML SUSP BTL As Ordered ONE; -VARIBAR PUDDING 40% w/v 230ML TUBE As Ordered ONE
[2017-02-28 14:25] LABS: IMMUNOGLOBULIN G 610 MG/DL (681-1648); IMMUNOGLOBULIN M 885 MG/DL (40-230); TOTAL PROTEIN 6.2 GM/DL (6.4-8.2)
[2017-03-01 10:53] LABS: ALBUMIN % 50.5 % (55.8-66.1); GAMMA GLOBULIN % 19.2 % (11.1-18.8)
[2017-03-01 10:54] LABS: ALBUMIN 3.13 GM/DL (3.29-5.55)
== END ==
LOC: M LAB REF 12:40
PROVIDERS: ATTEND Internal Medicine Medical Oncology
DX: C85.90 Non-Hodgkin lymphoma, unspecified, unspecified site (principal); R16.1 Splenomegaly, not elsewhere classified; D64.9 Anemia, unspecified